=== PATIENT | female | born 1985 | race Caucasian/White ===

== ENCOUNTER 2019-12-15 09:16 | Day surgery (SDC) | payer MEDICAID, SELFPAY ==
[2019-12-14 09:26] VITALS: BMI 45.8
--- NOTE | 2019-12-15 09:34 | P.ANESASSM_ITS ---
Pre-Anesthetic Assessment Pre-Anesthetic Assessment: Height/Weight: Height 1.7 m Weight 132.903 kg Preop Diagnosis: GERD Proposed Procedure: Operation Date: 12/15/19 10:45 Proposed Procedures p EGD 24973 K21.9(Not Applicable) - Los Candelario MD Exam: Pre-Anes Outpt Exam: alert, oriented x 3, clear to auscultation bilaterally and regular rate & rhythm Airway: Submandibular: WNL Cervical ROM: WNL MP: 2 GI: GI: GERD Metabolic: Metabolic: Morbid obesity Musc/skel: Musc/skel: Lower Back Pain Neuropsych: Neuropsych: PETERS Comments: migranes last 3 days ago Anesthetic Plan: ASA status: III Anesthesia: MAC PFSH Anesthesia PFSH: Social History Smoking and tobacco status: never smoked Second hand smoke exposure: No Alcohol intake: never Desire information about alcohol rehabilitation?: No Desire information about substance/drug rehabilitation?: No Adopted: No Caregiver/support person: Yes Lives independently: Yes Household members: spouse and friend(s) Housing: House Marital status: service: No Current occupational status: unemployed Current occupational exposures/hazards: No Pets and animals: No History of recent travel: No Sexually active: Yes Current gender identity: Female Salome/Yazidism: Protestant Special salome needs: No Agree to transfusion: No Financial difficulty paying for basics: Decline to Answer Data Anesthesia Cardiac Studies: No Data to Display
[2019-12-15 10:00] VITALS: BP 121/83; PULSE 83; RESP 18; TEMP 36.9; O2SAT 95
[2019-12-15] MEDS: sodium chloride 0.9% 1,000 ML 30 ML (10:20)
--- NOTE | 2019-12-15 11:25 | PM.HPUD ---
H&P update H&P Update: DATE OF SURGERY/PROCEDURE: 12/15/19 DATE H&P PERFORMED: 12/06/19 H&P UPDATE INFORMATION: H&P completed within last 30 days and No changes to prior documentation PREOP DIAGNOSIS: GERD ASSOCIATED WITH MORBID OBESITY PLANNED PROCEDURE: Operation Date: 12/15/19 10:45 Proposed Procedures p EGD 66561 K21.9(Not Applicable) - Los Candelario MD Full H&P Perinent History: Medical/Surgical History: Medical History (Updated 12/07/19 @ 17:07 by Los Candelario MD) History of PCOS (Acute) Obesity (Acute) Family History: Family History (Updated 12/06/19 @ 10:44 by Saba Morelos RN) Denies family history of Anesthesia complication Bleeding disorder Social History: Social History Smoking and tobacco status: never smoked Second hand smoke exposure: No Alcohol intake: never Desire information about alcohol rehabilitation?: No Desire information about substance/drug rehabilitation?: No Adopted: No Caregiver/support person: Yes Lives independently: Yes Household members: spouse and friend(s) Housing: House Marital status: service: No Current occupational status: unemployed Current occupational exposures/hazards: No Pets and animals: No History of recent travel: No Sexually active: Yes Current gender identity: Female Salome/Faith: Mu-Ism Special salome needs: No Agree to transfusion: No Financial difficulty paying for basics: Decline to Answer
--- NOTE | 2019-12-15 11:50 | ANE.PACU2 ---
 Inpatient post-anesthesia follow up: Airway intact: Yes Vital signs: Temperature 98.4 F Pulse Rate 83 Respiratory Rate 18 Blood Pressure 121/83 Pulse Oximetry 95 Oxygen Delivery Me thod Room Air Oxygen Flow Rate Fraction of Inspir ed Oxygen Hydration adequate: Yes Nausea and vomiting: No Pain level: 1 Mental status: Baseline
[2019-12-15 11:57] VITALS: BP 118/67; PULSE 81; RESP 18; TEMP 36.4; O2SAT 97
[2019-12-15 12:09] VITALS: BP 117/78; PULSE 93; RESP 18; O2SAT 98
[2019-12-16 07:45] LABS: H. Pylori / CLO Test Negative
== END 2019-12-15 12:27 | disposition home or self-care (01) ==
PROVIDERS: Family Provider Family Medicine; Visit Provider Surgery
PROC: 0DJ08ZZ Inspection of Upper Intestinal Tract, Via Natural or Artificial Opening Endoscopic (ICD-10-PCS; CPT 43235; principal; 2019-12-15 10:45)
DX: K21.9 Gastro-esophageal reflux disease without esophagitis (principal); K29.70 Gastritis, unspecified, without bleeding; E66.01 Morbid (severe) obesity due to excess calories; Z68.42 Body mass index [BMI] 45.0-49.9, adult; F41.9 Anxiety disorder, unspecified; E28.2 Polycystic ovarian syndrome
CPT/HCPCS: 12345; 43239; 87077; J2704; J7030

== ENCOUNTER 2019-12-20 11:43 | Emergency (ER) | payer MEDICAID, SELFPAY ==
[2019-12-20 11:54] VITALS: BP 165/104; PULSE 79; RESP 20; TEMP 36.7; O2SAT 96; BMI 45.8
--- NOTE | 2019-12-20 14:11 | ED_ITS ---
HPI - Headache General: Chief Complaint: Headache Stated Complaint: Headache, burry vision Time Seen by Provider: 12/20/19 13:58 History of Present Illness: HPI Narrative: Patient with headache on and off for the last month. Ibuprofen did not seem be working well. Is under increased stress due to taking care of children now. Denies any nausea and vomiting or other related symptoms. MD elicited complaint: headache Onset (ago): week(s) Location: right Severity: mild Quality & Timing: throbbing Exacerbating factors: exertion, movement of head/neck and light Relieving factors: rest Associated symptoms: Deny chest pain, fever(s), nausea, rash or vomiting Review of Systems Const: Denies: fever, chills or body aches Eyes: Denies: change in vision or blurry vision ENMT: Denies: throat pain or nasal congestion Card: Denies: chest pain or shortness of breath on exertion Resp: Denies: shortness of breath, productive cough or non-productive cough GI: Denies: abdominal pain, nausea or vomiting Musc: Denies: extremity pain Skin/Breast: Denies: rash Neuro: Reports: headache Psych: Denies: anxiety or depression Zacarias/Lymph: Denies: easy bruising PFSH ED PFSH: Statuses (acute, chronic, etc) shown below reflect problem list status as previously entered and may not be historically accurate Social History Smoking and tobacco status: never smoked Second hand smoke exposure: No Alcohol intake: never Desire information about alcohol rehabilitation?: No Desire information about substance/drug rehabilitation?: No Adopted: No Caregiver/support person: Yes Lives independently: Yes Household members: spouse and friend(s) Housing: House Marital status: service: No Current occupational status: unemployed Current occupational exposures/hazards: No Pets and animals: No History of recent travel: No Sexually active: Yes Current gender identity: Female Salome/Hinduism: Confucianism Special salome needs: No Agree to transfusion: No Financial difficulty paying for basics: Decline to Answer Physical Exam Const: COMMON NORMALS: no apparent distress, average body habitus and oriented x3 HENMT: COMMON NORMALS: normocephalic HEAD & SCALP: normal to inspection and normocephalic FACE & SINUS: normal facial exam Eye: COMMON NORMALS: conjunctivae normal GENERAL EYE: normal appearance of both eyes CONJUNCTIVA: Yes conjunctivae normal Neck/C-Spine: COMMON NORMALS: no JVD Chest: COMMONS NORMALS: inspection of chest normal Resp: COMMON NORMALS: normal respiratory effort and clear to auscultation bilaterally AUSCULTATION: clear to auscultation bilaterally Cardio: COMMON NORMALS: no JVD, regular rate and regular rhythm RATE: regular rate RHYTHM: regular rhythm GI: COMMON NORMALS: normal to inspection, nondistended, normoactive bowel sounds Extremity: COMMON NORMALS: normal to inspection and full ROM Neuro: COMMON NORMALS: oriented x3 Course Vital Signs: Vital signs: Vital Signs Temperature 98.0 F 12/20/19 11:54 Pulse Rate 79 12/20/19 11:54 Respiratory Rate 20 H 12/20/19 11:54 Blood Pressure 165/104 12/20/19 11:54 Pulse Oximetry 96 12/20/19 11:54 Discharge Plan Discharge Patient Disposition: Home, Self-Care Clinical Impression: Tension headache Condition: Stable Prescriptions: New qxaqixpatq-jyrnobonzadvo-arnd [Esgic] 50-325-40 mg tablet 1 tab PO Q6H PRN (Reason: pain) Qty: 14 RF: 0 No Action Protonix 40 mg tablet,delayed release (DR/EC) 40 mg PO DAILY 30 Days Qty: 30 RF: 1 Discharge Orders: Discharge Order (Routine); Ordered 12/20/19 Ordered By: Kelby Mckinney Referrals: Blaze Augustin, DO [Family Provider] - Discharge Diet: Advance as tolerated Discharge Activity: Resume usual activity Patient Instructions: Headache Activity Restrictions/Additional Instructions: Follow-up with medical provider as directed. Take medications as prescribed. Return to the ER or your medical provider if condition worsens. Please read and understand discharge instructions. If any questions ask please. Establish with a primary provider Coding Level of Care Code ED Safety Belt Installer for Vilma Herrera
[2019-12-20 14:24] VITALS: BP 139/92; PULSE 88; RESP 18; O2SAT 97
== END 2019-12-20 14:25 | disposition home or self-care (01) ==
PROVIDERS: Emergency Provider Nurse Practitioner Family; Family Provider Family Medicine
DX: G44.209 Tension-type headache, unspecified, not intractable (principal)
CPT/HCPCS: 99281

== ENCOUNTER 2020-04-09 12:49 | Emergency (ER) | payer MEDICAID, SELFPAY ==
[2020-04-09 12:53] VITALS: BMI 45.4
[2020-04-09 12:56] VITALS: BP 153/104; PULSE 99; RESP 20; TEMP 36.6; O2SAT 96
--- NOTE | 2020-04-09 13:01 | XRR_ITS ---
PROCEDURE INFORMATION: Exam: XR Lumbosacral Spine, 2 or 3 Views Exam date and time: 04/09/2020 1:47 PM Age: 35 years old Clinical indication: Injury or trauma; Fall; Initial encounter; Blunt trauma (contusions or hematomas) TECHNIQUE: Imaging protocol: XR of the lumbosacral spine, 2 or 3 views. COMPARISON: CT abdomen pelvis w con* [id number] 09/08/2018 2:57 AM FINDINGS: Vertebrae: 4 degree lumbar levoscoliosis. There is a transitional lumbosacral vertebra. Multilevel mild to moderate facet arthropathy. There are multilevel small lower thoracic and lumbar marginal osteophyte formations. Multilevel mild disc space narrowing. Soft tissues: There are benign-appearing soft tissue calcifications. XR/XR lumbar spine 2-3V* [id number] IMPRESSION: There are jpcg-wd-nxdwxhwa degenerative changes as described above. 4 degree lumbar levoscoliosis. No evidence for acute fracture.
--- NOTE | 2020-04-09 13:01 | XRR_ITS ---
PROCEDURE INFORMATION: Exam: XR Thoracic Spine, 3 Views Exam date and time: 04/09/2020 1:02 PM Age: 35 years old Clinical indication: Injury or trauma; Fall; Initial encounter; Blunt trauma (contusions or hematomas) TECHNIQUE: Imaging protocol: XR of the thoracic spine, 3 views. COMPARISON: No relevant prior studies available. FINDINGS: Vertebrae: 7 degree thoracic dextroscoliosis. Multilevel mild disc space narrowing. Soft tissues: Normal. XR/XR thoracic spine 3V* [id number] IMPRESSION: No acute findings. 7 degree thoracic dextroscoliosis.
--- NOTE | 2020-04-09 13:01 | XRR_ITS ---
PROCEDURE INFORMATION: Exam: XR Chest, 2 Views Exam date and time: 04/09/2020 1:02 PM Age: 35 years old Clinical indication: Left-sided chest pain; Additional info: Fall TECHNIQUE: Imaging protocol: XR of the chest Views: 2 views. COMPARISON: CR Chest 1 [place] [id number] 09/08/2018 1:39 AM FINDINGS: Lungs: Unremarkable. No consolidation. Pleural space: Unremarkable. No pleural effusion. No pneumothorax. Heart/Mediastinum: Unremarkable. No cardiomegaly. Bones/joints: Unremarkable. XR/XR chest 2V* [id number] IMPRESSION: No acute findings.
--- NOTE | 2020-04-09 13:03 | W.ED.FALL ---
HPI - Fall General: Chief Complaint: Fall Stated Complaint: rib/leg pain post fall Time Seen by Provider: 04/09/20 12:58 Source: patient Mode of arrival: ambulatory Limitations: no limitations History of Present Illness: HPI Narrative: 35-year-old female who states she fell 3 days ago. She states she has had low back along with chest pain since the event. States pain is sharp in nature and is worse with walking. She denies any other injuries. States her pain is sharp in nature and rates it a MD complaint: fall Associated symptoms-after fall: Denies abdominal pain, chest pain, headache(s) or neck pain Review of Systems Const: Denies: fever(s), chills, body aches or change in appetite Eyes: Denies: blurry vision or eye discomfort ENMT: Denies: throat pain or dental pain Card: Denies: chest pain Resp: Denies: dyspnea GI: Denies: abdominal pain, nausea, vomiting or diarrhea : Denies: dysuria Musc: Reports: back pain; Denies: neck pain Skin/Breast: Denies: rash Neuro: Denies: headache(s) Psych: Denies: depression Zacarias/Lymph: Denies: easy bruising All/Imm: Denies: urticaria PFSH ED PFSH: Medical History History of PCOS Obesity Surgical History History of hysterectomy (~2019) Family History Denies family history of Anesthesia complication Bleeding disorder Social History Smoking and tobacco status: never smoked Second hand smoke exposure: No Alcohol intake: never Desire information about alcohol rehabilitation?: No Desire information about substance/drug rehabilitation?: No Adopted: No Caregiver/support person: Yes Lives independently: Yes Household members: spouse and friend(s) Housing: House Marital status: service: No Current occupational status: unemployed Current occupational exposures/hazards: No Pets and animals: No History of recent travel: No Sexually active: Yes Current gender identity: Female Salome/Buddhist: Buddhism Special salome needs: No Agree to transfusion: No Financial difficulty paying for basics: Decline to Answer Physical Exam Const: COMMON NORMALS: no acute distress, patient oriented x3 and healthy appearing HENMT: COMMON NORMALS: normocephalic and atraumatic HEAD & SCALP: normocephalic and atraumatic Eye: COMMON NORMALS: Equal, round and reactive pupils present and EOMs intact bilaterally PUPIL: Yes Equal, round and reactive pupils present Neck/C-Spine: COMMON NORMALS: full ROM and supple Chest: COMMONS NORMALS: normal inspection of the chest and normal palpation of entire chest wall Resp: COMMON NORMALS: normal respiratory effort, No retractions, No use of accessory muscles and clear to auscultation bilaterally AUSCULTATION: clear to auscultation bilaterally Cardio: COMMON NORMALS: regular rate, regular rhythm and No murmurs present (Cardio) RATE: regular rate RHYTHM: regular rhythm GI: COMMON NORMALS: Normal to inspection, nondistended, normoactive bowel sounds present, Soft to palpation, non-tender and no masses PALPATION: Yes Soft to palpation Back/Pelvis: OTHER: Tenderness along thoracic and lumbar spine Extremity: COMMON NORMALS: normal to inspection and full ROM Neuro: COMMON NORMALS: patient oriented x3, moves all extremities and no focal motor deficits Psych: COMMON NORMALS: mental status grossly normal, Normal thought process present and cooperative THOUGHT PROCESS: Normal thought process present Skin: COMMON NORMALS: no rashes or lesions noted and no wounds GENERAL SKIN EXAM: no rashes or lesions noted Course Vital Signs: Vital signs: Vital Signs Temperature 97.8 F 04/09/20 12:56 Pulse Rate 99 04/09/20 12:56 Respiratory Rate 20 H 04/09/20 12:56 Blood Pressure 153/104 04/09/20 12:56 Pulse Oximetry 96 04/09/20 12:56 MDM - Fall MDM Narrative: Medical decision making narrative: Patient presents here with muscle strain from a fall. Patient's x-rays here are negative her exam is benign. Patient is stable for discharge and is to follow-up with primary care doctor in 3 to 5 days return if worsening. Imaging Data^: CXR: Attestation: I personally reviewed and interpreted this imaging study as follows: My impression: No acute abnormality X-ray lumbar spine: Attestation: I personally reviewed and interpreted this imaging study as follows: My impression: No acute abnormality X-ray thoracic spine: Attestation: I personally reviewed and interpreted this imaging study as follows: My impression: No acute abnormality Discharge Plan Discharge Patient Disposition: Home, Self-Care Clinical Impression: Fall Qualifiers: Encounter type: initial encounter Qualified Code(s): W19.XXXA - Unspecified fall, initial encounter Chest wall contusion Qualifiers: Encounter type: initial encounter Laterality: unspecified laterality Qualified Code(s): S20.219A - Contusion of unspecified front wall of thorax, initial encounter Condition: Stable Prescriptions: New Robaxin-750 750 mg tablet 750 mg PO Q6H Qty: 30 RF: 0 EC-Naprosyn 500 mg tablet,delayed release (DR/EC) 500 mg PO BID PRN (Reason: pain) Qty: 20 RF: 0 No Action Protonix 40 mg tablet,delayed release (DR/EC) 40 mg PO DAILY 30 Days Qty: 30 RF: 1 Esgic 50-325-40 mg tablet 1 tab PO Q6H PRN (Reason: pain) Qty: 14 RF: 0 Discharge Orders: Discharge Order (Routine); Ordered 04/09/20 Ordered By: Randa Howard Referrals: Blaze Augustin, [Family Provider] - Discharge Diet: Advance as tolerated Discharge Activity: Resume usual activity Patient Instructions: Contusion in Adults (ED) Coding Level of Care Code ED Rock Room Worker for Vilma Fwjerry Exam Comprehensive
[2020-04-09] MEDS: HYDROcodone-acetaminophen 7.5-325 mg Tablet 1 TAB PO (13:16)
[2020-04-09 14:03] VITALS: BP 118/91; PULSE 91; RESP 18; O2SAT 91
== END 2020-04-09 14:03 | disposition home or self-care (01) ==
PROVIDERS: Emergency Provider Emergency Medicine; Family Provider Family Medicine
DX: S20.219A Contusion of unspecified front wall of thorax, initial encounter (principal); W19.XXXA Unspecified fall, initial encounter
CPT/HCPCS: 12345; 71046; 72072; 72100; 99281; 99283

== ENCOUNTER 2020-05-04 17:13 | Emergency (ER) | payer MEDICAID, SELFPAY ==
[2020-05-04 17:21] VITALS: BP 138/102; PULSE 83; RESP 14; TEMP 36.7; O2SAT 95; BMI 45.1
[2020-05-04 18:18] LABS: Basophils # 0.1 10^3/uL (0.0-0.1); Basophils % 0.7 %; Eosinophils # 0.3 10^3/uL (0.0-0.8); Eosinophils % 3.1 %; Hematocrit 43.4 % (37.0-47.0); Hemoglobin 14.2 g/dL (11.5-15.3); Lymphocytes # 2.8 10^3/uL (0.8-4.8); Lymphocytes % 25.9 %; Mean Corpuscular HGB Conc 32.7 g/dL (30.0-36.0); Mean Corpuscular Hemoglobin 30.2 pg (28.0-34.0); Mean Corpuscular Volume 92.3 fL (81-99); Mean Platelet Volume 9.2 fL (7.4-10.4); Monocytes # 0.7 10^3/uL (0.2-0.9); Monocytes % 6.4 %; Neutrophils # 6.9 10^3/uL (1.8-7.7); Neutrophils % 63.7 %; Nucleated Red Blood Cells % 0 %; Platelet Count 388 10^3/cmm (130-400); Red Cell Distribution Width 12.9 % (12.1-15.1); White Blood Count 10.8 10^3/uL (4.0-10.0)
[2020-05-04 18:53] LABS: Alanine Aminotransferase 25 U/L (0-33); Albumin Level 4.7 g/dL (3.5-5.2); Alkaline Phosphatase 71 IU/L (35-105); Anion Gap 18.8 (5-19); Aspartate Amino Transferase 19 U/L (0-32); Blood Urea Nitrogen 13 mg/dL (6-20); Calcium 10.3 mg/dL (8.5-10.5); Carbon Dioxide 23 mmol/L (22-29); Chloride 102 mmol/L (98-107); Globulin 2.9 g/dL (1.3-4.6); Glomerular Filtration Rate 95.2 mL/min (90-130); Glucose 92 mg/dL (65-115); Lipase 15 U/L (13-60); Osmolality Calculated 286 mOsm/kg (285-295); Potassium 3.8 mmol/L (3.5-5.1); Sodium 140 mmol/L (136-145); Total Bilirubin 0.2 mg/dL (0.15-1.2); Total Protein 7.6 g/dL (6.6-8.7)
[2020-05-04 18:54] LABS: HCG, Serum Qual Negative (Negative)
[2020-05-04 19:00] LABS: INR 0.86 (0.8-1.2); Partial Thromboplastin Time 26.9 SECONDS (23.9-36.7)
--- NOTE | 2020-05-04 19:08 | CTR_ITS ---
PROCEDURE INFORMATION: Exam: CT Abdomen And Pelvis With Contrast Exam date and time: 05/04/2020 7:24 PM Age: 35 years old Clinical indication: Other: Rectal bleeding; Abdominal pain; Prior surgery; Surgery type: Hyst; Additional info: Abd pain TECHNIQUE: Imaging protocol: Computed tomography of the abdomen and pelvis with intravenous contrast. Radiation optimization: All CT scans at this facility use at least one of these dose optimization techniques: automated exposure control; mA and/or kV adjustment per patient size (includes targeted exams where dose is matched to clinical indication); or iterative reconstruction. Contrast material: OMNI 300; Contrast volume: 95 ml; Contrast route: INTRAVENOUS (IV); COMPARISON: CT abdomen pelvis w con* [id number] 09/08/2018 2:57 AM RADIATION DOSE METRICS: Total DLP (mGy-cm): 2074.12 FINDINGS: There is minimal atelectasis within the lung bases. There is mild scoliosis of the spine. There is no liver mass. There is no intrahepatic biliary dilatation. No gallstones are seen within the gallbladder. The pancreas is unremarkable. The spleen is unremarkable. There is no adrenal mass. There is no hydronephrosis. There are no renal calculi. There is no perinephric stranding. There is no renal mass. The aorta is normal in caliber. The IVC is normal in caliber. There is no retroperitoneal adenopathy. There is no mesenteric adenopathy. The stomach is unremarkable. The small bowel loops in the upper abdomen are nondistended with no bowel wall thickening. The colonic structures within the upper abdomen are normal in caliber with no bowel wall thickening. Within the pelvis: A normal appendix is seen within the right lower quadrant. The bladder is unremarkable. The patient is status post hysterectomy. There are no adnexal masses. There is no free fluid within the pelvis. There is no inguinal adenopathy. There is no pelvic adenopathy. The bowel loops within the pelvis are unremarkable. CT/CT abdomen pelvis w con* [id number] IMPRESSION: 1. No definite cause for patient's rectal bleeding. 2. No bowel wall thickening. 3. No acute inflammatory process is seen within the abdomen or pelvis. Radiation Dose CTDIVOL = (mGy): DLP = 2074.12 (mGy-cm)
--- NOTE | 2020-05-04 19:43 | W.ED.ABDPA2 ---
HPI - Abdominal Pain General: Chief Complaint: Abdominal Pain Stated Complaint: n/v, abd pain, bloody stool Time Seen by Provider: 05/04/20 19:29 History of Present Illness: HPI narrative: 35-year-old female patient who presented left-sided abdominal pain with associated nausea vomiting and diarrhea. Stools have been bloody for about a week. She states that the blood is pouring out of her anus . She denies any fever. She went to her primary care provider who advised that she come to the ED to be evaluated. No history of diverticulitis. MD elicited complaint: abdominal pain Onset (ago): day(s) (3) Location: LUQ and LLQ Quality: stabbing Radiation: none Relieving factors: nothing Associated Symptoms: Reports diarrhea, hematochezia, nausea and vomiting; Denies chills, dysuria and fever(s) Review of Systems General: Reports: 10 or more systems reviewed and unremarkable except in HPI and below Const: Denies: fever(s), chills or body aches Eyes: Denies: change in vision or blurry vision Card: Denies: palpitations, irregular heart rhythm, edema or swelling of feet/ankles Resp: Denies: dyspnea, productive cough or non-productive cough GI: Reports: abdominal pain, nausea, vomiting, diarrhea and hematochezia : Denies: flank pain, difficulty voiding, dysuria, urinary frequency, urinary urgency or urinary hesitancy Musc: Denies: neck pain, back pain or extremity swelling Skin/Breast: Denies: rash, pruritus or erythema Neuro: Denies: headache(s), numbness in extremities or weakness in extremities Endo: Denies: polyuria, polydipsia or tired all the time PFSH ED PFSH: Medical History History of PCOS Obesity Surgical History History of hysterectomy (~2019) Family History Denies family history of Anesthesia complication Bleeding disorder Social History Smoking and tobacco status: never smoked Second hand smoke exposure: No Alcohol intake: never Desire information about alcohol rehabilitation?: No Desire information about substance/drug rehabilitation?: No Adopted: No Caregiver/support person: Yes Lives independently: Yes Household members: spouse and friend(s) Housing: House Marital status: service: No Current occupational status: unemployed Current occupational exposures/hazards: No Pets and animals: No History of recent travel: No Sexually active: Yes Current gender identity: Female Salome/Presybeterian: Adventist Special salome needs: No Agree to transfusion: No Financial difficulty paying for basics: Decline to Answer Physical Exam Const: COMMON NORMALS: no acute distress, average body habitus, patient oriented x3, no limitations, healthy appearing, alert and well nourished HENMT: COMMON NORMALS: normocephalic, atraumatic and moist oral mucous membranes HEAD & SCALP: normocephalic and atraumatic Eye: COMMON NORMALS: Equal, round and reactive pupils present, EOMs intact bilaterally, conjunctivae normal and no scleral icterus CONJUNCTIVA: Yes conjunctivae normal PUPIL: Yes Equal, round and reactive pupils present Neck/C-Spine: COMMON NORMALS: full ROM, supple, no meningeal signs, no JVD and No carotid bruits Chest: COMMONS NORMALS: normal inspection of the chest and normal palpation of entire chest wall Resp: COMMON NORMALS: normal respiratory effort, No retractions, No use of accessory muscles, clear to auscultation bilaterally and percussion normal AUSCULTATION: clear to auscultation bilaterally PERCUSSION: percussion normal Cardio: COMMON NORMALS: no JVD, regular rate, regular rhythm, S1 normal heart sound present, S2 normal heart sound present, No gallops present (Cardio), No clicks present (Cardio), No murmurs present (Cardio), No rub (Cardio) and Peripheral pulses 2+ throughout RATE: regular rate RHYTHM: regular rhythm HEART SOUNDS: S1 normal heart sound present and S2 normal heart sound present PERIPHERAL PULSES: Peripheral pulses 2+ throughout GI: COMMON NORMALS: Soft to palpation INSPECTION: No Laceration(s) present (GI) PALPATION: Yes Soft to palpation, Yes Tenderness to palpation present (GI) Details: LLQ and LUQ and No Rebound tenderness present RECTAL EXAM: normal sphincter tone, heme positive stool, External hemorrhoid(s) present, No Fistula present (GI), no laceration(s) noted, No Excoriation present (GI), no mass(es) noted and no tenderness noted : COMMON NORMALS: Yes no CVA tenderness BLADDER/KIDNEY EXAM: Yes no CVA tenderness Back/Pelvis: COMMON NORMALS: no CVA tenderness Extremity: COMMON NORMALS: normal to inspection, full ROM, capillary refill normal, no calf tenderness and no pedal edema Neuro: COMMON NORMALS: patient oriented x3 SENSORIUM/ORIENTATION: Yes alert MENINGEAL SIGNS: Yes no meningeal signs Skin: COMMON NORMALS: no rashes or lesions noted, no wounds, turgor normal, no jaundice, no petechiae and no mottling GENERAL SKIN EXAM: no rashes or lesions noted and turgor normal Course Reevaluation(s): Reevaluation #1: Discussed her lab and imaging findings with her. Hemoglobin normal, CT scan of her abdomen and pelvis also normal. Hemoccult positive, possibly secondary to bleeding hemorrhoids although there is no active bleeding noted. Discussed that since she has been bleeding for about a week and her hemoglobin is normal I do not think there is any indication for admission. We will discharge her home and schedule an outpatient colonoscopy. She voiced understanding and is in agreement with the plan peer Time: 21:04 Vital Signs: Vital signs: Vital Signs Temperature 98.0 F 05/04/20 17:21 Pulse Rate 86 05/04/20 19:50 Respiratory Rate 16 05/04/20 19:50 Blood Pressure 128/84 05/04/20 19:50 Pulse Oximetry 96 05/04/20 19:50 MDM - Abdominal Pain MDM Narrative: Medical decision making narrative: Patient who describes copious rectal bleeding. She has associated abdominal pain nausea and vomiting. With diarrhea. Evaluation here shows essentially normal laboratory findings except a mildly elevated white cell count, normal hemoglobin which would be unusual if she is having as much bleeding as she is describing. CT scan of her abdomen and pelvis was negative for diverticulitis or other acute findings. She is discharged home to follow-up for an outpatient colonoscopy. No indication for further work-up in the emergency department. Pain resolved following morphine. She is discharged home with a prescription for tramadol. Medical Records: Attestation: I reviewed the patient's medical records. Lab Data: Attestation: I reviewed the patient's lab results. Labs: Lab Results 05/04/20 05/04/20 05/04/20 Range/Units 18:00 18:00 18:00 WBC 10.8 H (4.0-10.0) 10^3/ uL RBC 4.70 (4.1-5.3) 10^6/u L Hgb 14.2 (11.5-15.3) g/dL Hct 43.4 (37.0-47.0) % MCV 92.3 (81-99) fL MCH 30.2 (28.0-34.0) pg MCHC 32.7 (30.0-36.0) g/dL RDW 12.9 (12.1-15.1) % Plt Count 388 (130-400) 10^3/c mm MPV 9.2 (7.4-10.4) fL Neut % (Auto) 63.7 % Lymph % (Auto) 25.9 % Dawson % (Auto) 6.4 % Eos % (Auto) 3.1 % Baso % (Auto) 0.7 % Neut # (Auto) 6.9 (1.8-7.7) 10^3/u L Lymph # (Auto) 2.8 (0.8-4.8) 10^3/u L Dawson # (Auto) 0.7 (0.2-0.9) 10^3/u L Eos # (Auto) 0.3 (0.0-0.8) 10^3/u L Baso # (Auto) 0.1 (0.0-0.1) 10^3/u L Nucleated RBC % (a uto) 0 % Nucleated RBCs # 0.0 /100WBC PT 12.00 (10.5-13.3) SECO NDS INR 0.86 (0.8-1.2) APTT 26.9 (23.9-36.7) SECO NDS Sodium 140 (136-145) mmol/L Potassium 3.8 (3.5-5.1) mmol/L Chloride 102 (98-107) mmol/L Carbon Dioxide 23 (22-29) mmol/L Anion Gap 18.8 (5-19) BUN 13 (6-20) mg/dL Creatinine 0.7 (0.5-0.9) mg/dL GFR Calculation 95.2 (90-130) mL/min Glucose 92 (65-115) mg/dL Calculated Osmolal ity 286 (285-295) mOsm/k g Calcium 10.3 (8.5-10.5) mg/dL Total Bilirubin 0.2 (0.15-1.2) mg/dL AST 19 (0-32) U/L ALT 25 (0-33) U/L Alkaline Phosphata se 71 (35-105) IU/L Total Protein 7.6 (6.6-8.7) g/dL Albumin 4.7 (3.5-5.2) g/dL Globulin 2.9 (1.3-4.6) g/dL Lipase 15 (13-60) U/L HCG, Qual (Negative) Urine Color (Yellow) Urine Appearance (CLEAR) Urine pH (5-7) Ur Specific Gravit y (1.005-1.030) Urine Protein (Negative) Urine Glucose (UA) (Normal) Urine Ketones (Negative) Urine Blood (Negative) Urine Nitrate (Negative) Urine Bilirubin (NEGATIVE) Urine Urobilinogen (Negative) mg/dL Ur Leukocyte Danuta ase (Negative) Urine RBC (0-2) /hpf Urine WBC (0-5) /hpf Ur Squamous Epith Cells (0-5) Calcium Oxalate Cr ystal /hpf Amorphous Sediment Urine Bacteria (NONE) 05/04/20 05/04/20 Range/Units 18:00 20:40 WBC (4.0-10.0) 10^3/ uL RBC (4.1-5.3) 10^6/u L Hgb (11.5-15.3) g/dL Hct (37.0-47.0) % MCV (81-99) fL MCH (28.0-34.0) pg MCHC (30.0-36.0) g/dL RDW (12.1-15.1) % Plt Count (130-400) 10^3/c mm MPV (7.4-10.4) fL Neut % (Auto) % Lymph % (Auto) % Dawson % (Auto) % Eos % (Auto) % Baso % (Auto) % Neut # (Auto) (1.8-7.7) 10^3/u L Lymph # (Auto) (0.8-4.8) 10^3/u L Dawson # (Auto) (0.2-0.9) 10^3/u L Eos # (Auto) (0.0-0.8) 10^3/u L Baso # (Auto) (0.0-0.1) 10^3/u L Nucleated RBC % (a uto) % Nucleated RBCs # /100WBC PT (10.5-13.3) SECO NDS INR (0.8-1.2) APTT (23.9-36.7) SECO NDS Sodium (136-145) mmol/L Potassium (3.5-5.1) mmol/L Chloride (98-107) mmol/L Carbon Dioxide (22-29) mmol/L Anion Gap (5-19) BUN (6-20) mg/dL Creatinine (0.5-0.9) mg/dL GFR Calculation (90-130) mL/min Glucose (65-115) mg/dL Calculated Osmolal ity (285-295) mOsm/k g Calcium (8.5-10.5) mg/dL Total Bilirubin (0.15-1.2) mg/dL AST (0-32) U/L ALT (0-33) U/L Alkaline Phosphata se (35-105) IU/L Total Protein (6.6-8.7) g/dL Albumin (3.5-5.2) g/dL Globulin (1.3-4.6) g/dL Lipase (13-60) U/L HCG, Qual Negative (Negative) Urine Color Yellow (Yellow) Urine Appearance Hazy A (CLEAR) Urine pH 5 (5-7) Ur Specific Gravit y 1.020 (1.005-1.030) Urine Protein Neg (Negative) Urine Glucose (UA) Norm (Normal) Urine Ketones 2+ H (Negative) Urine Blood Neg (Negative) Urine Nitrate Positive H (Negative) Urine Bilirubin Neg (NEGATIVE) Urine Urobilinogen Norm (Negative) mg/dL Ur Leukocyte Danuta ase Negative (Negative) Urine RBC 5-10 H (0-2) /hpf Urine WBC 15-25 H (0-5) /hpf Ur Squamous Epith Cells 5-10 H (0-5) Calcium Oxalate Cr ystal 10-15 H /hpf Amorphous Sediment Not Reportable Urine Bacteria 3+ H (NONE) Imaging Data ^: CT Abd/Pel: Radiologist's impression: [facility] [address] [place] [address] CT Scan Report Signed Patient: Rajni Mallory #: [id number] : 1985Acct#:[id number] Age/Sex: 35 / FADM Date: 05/04/20 Loc: ERRoom/Bed: Attending Dr: Ordering Provider/Ordering MD: Randa Howard MD Date of Service: 05/04/20 Procedure(s): CT abdomen pelvis w con* [id number] Accession Number(s): [id number] Report Number: [id number] PROCEDURE INFORMATION: Exam: CT Abdomen And Pelvis With Contrast Exam date and time: 05/04/2020 7:24 PM Age: 35 years old Clinical indication: Other: Rectal bleeding; Abdominal pain; Prior surgery; Surgery type: Hyst; Additional info: Abd pain TECHNIQUE: Imaging protocol: Computed tomography of the abdomen and pelvis with intravenous contrast. Radiation optimization: All CT scans at this facility use at least one of these dose optimization techniques: automated exposure control; mA and/or kV adjustment per patient size (includes targeted exams where dose is matched to clinical indication); or iterative reconstruction. Contrast material: OMNI 300; Contrast volume: 95 ml; Contrast route: INTRAVENOUS (IV); COMPARISON: CT abdomen pelvis w con* [id number] 09/08/2018 2:57 AM RADIATION DOSE METRICS: Total DLP (mGy-cm): 2074.12 FINDINGS: There is minimal atelectasis within the lung bases. There is mild scoliosis of the spine. There is no liver mass. There is no intrahepatic biliary dilatation. No gallstones are seen within the gallbladder. The pancreas is unremarkable. The spleen is unremarkable. There is no adrenal mass. There is no hydronephrosis. There are no renal calculi. There is no perinephric stranding. There is no renal mass. The aorta is normal in caliber. The IVC is normal in caliber. There is no retroperitoneal adenopathy. There is no mesenteric adenopathy. The stomach is unremarkable. The small bowel loops in the upper abdomen are nondistended with no bowel wall thickening. The colonic structures within the upper abdomen are normal in caliber with no bowel wall thickening. Within the pelvis: A normal appendix is seen within the right lower quadrant. The bladder is unremarkable. The patient is status post hysterectomy. There are no adnexal masses. There is no free fluid within the pelvis. There is no inguinal adenopathy. There is no pelvic adenopathy. The bowel loops within the pelvis are unremarkable. CT/CT abdomen pelvis w con* [id number] IMPRESSION: 1. No definite cause for patient's rectal bleeding. 2. No bowel wall thickening. 3. No acute inflammatory process is seen within the abdomen or pelvis. Radiation Dose CTDIVOL = (mGy): DLP = 2074.12 (mGy-cm) Dictated By:Ron Muhammad MD Signed By:Ron Muhammadigned Date/Time:05/04/202013 DD/ 11 Discharge Plan Discharge Patient Disposition: Home, Self-Care Clinical Impression: Rectal bleeding Condition: Stable Prescriptions: New tramadol 50 mg tablet 50 mg PO Q8H PRN (Reason: pain) Qty: 12 RF: 0 No Action No Known Home Medications RF: 0 Discharge Orders: Discharge Order (Routine); Ordered 05/04/20 Ordered By: Brenton Weathers Patient Instructions: Rectal Bleeding (ED) Activity Restrictions/Additional Instructions: Return for any new or worsening symptoms. Take the pain medicine as needed for pain. You will be contacted by case management to schedule an outpatient colonoscopy. Coding Level of Care Code ED Second Steward for Chg Fwd Exam Comprehensive
[2020-05-04 19:50] VITALS: BP 128/84; PULSE 86; RESP 16; O2SAT 96
--- NOTE | 2020-05-04 19:58 | PC.NURSE ---
Patient to CT in stable condition.
[2020-05-04] MEDS: iohexol 300 mg/mL 100 mL Btl IV (20:01)
[2020-05-04] MEDS: ondansetron 2 mg/ML SDV 2 mL 4 MG IVP (20:30)
[2020-05-04] MEDS: morphine 4 mg/mL SDV 1 mL IVP (20:30)
[2020-05-04 21:27] LABS: Urine Appearance Hazy (CLEAR); Urine Color Yellow (Yellow); pH Urine 5 (5-7)
[2020-05-04 21:28] LABS: Add Urine Microscopic? YES; Bilirubin Urine Neg (NEGATIVE); Blood Urine Neg (Negative); Glucose Urine UA Norm (Normal); Ketones Urine 2+ (Negative); Leukocyte Esterase Urine Negative (Negative); Nitrate Urine Positive (Negative); Protein Urine Neg (Negative); Urobilinogen Urine Norm (Negative)
[2020-05-04 21:47] LABS: Add Urine Culture? Yes; Bacteria Urine 3+; WBC Urine 15-25 /hpf (0-5)
--- NOTE | 2020-05-05 10:15 | DCPLANNER ---
manager creative had message to schedule a follow up appointment for patient with general surgery. manager creative called [facility], spoke with Vero, gave clinic patients information. manager creative was told that patients information would be printed and reviewed. Clinic will call patient with appointment information.
--- NOTE | 2020-05-09 09:26 | DCPLANNER ---
Patient has a follow up appointment scheduled for Friday, May 19, [address] at 11:[address] Terrell. Clinic will call patient with appointment information.
--- NOTE | 2020-05-23 12:24 | DCPLANNER ---
Patient did attend follow up appointment scheduled for 05.19.20 with [facility].
== END 2020-05-04 22:05 | disposition home or self-care (01) ==
PROVIDERS: Physician Assistant; Emergency Provider Family Medicine
DX: K62.5 Hemorrhage of anus and rectum (principal)
CPT/HCPCS: 12345; 36415; 74177; 80053; 81001; 83690; 84703; 85025; 85610; 85730; 87077; 87086; 87186; 96374; 96375; 99282; 99283; J2270; J2405; Q9967

== ENCOUNTER → 2020-06-05 09:51 | Outpatient (BNVA) | payer MEDICAID, SELFPAY | PROVIDERS: Visit Provider Psychiatry & Neurology Psychiatry | DX: F41.1 Generalized anxiety disorder (principal); F81.9 Developmental disorder of scholastic skills, unspecified ==

== ENCOUNTER → 2020-06-27 13:37 | Outpatient (BNVA) | payer MEDICAID, SELFPAY | PROVIDERS: Visit Provider Nurse Practitioner | DX: S89.91XA Unspecified injury of right lower leg, initial encounter (principal) | CPT/HCPCS: 73560 ==

== ENCOUNTER 2020-06-30 14:42 | Emergency (ER) | payer MEDICAID, SELFPAY ==
[2020-06-30 14:48] VITALS: BP 153/102; PULSE 80; RESP 20; TEMP 37; O2SAT 97; BMI 46.2
--- NOTE | 2020-06-30 14:53 | XR_ITS ---
WS: [id number] EXAM: RIGHT KNEE: 3 VIEWS DATE OF EXAMINATION: 06/30/2020, 1519 hours COMPARISON: Right knee exam from 06/27/2020 HISTORY: Patient is 35 years old with knee pain status post fall. FINDINGS: Bone density is normal in appearance. No fracture or dislocation is seen. No joint effusion is seen. There appears to be some edema in the extra-articular soft tissues suggesting possibly contusion inju ry. XR/XR knee RT 3V* [id number] IMPRESSION: No acute bony abnormality. Soft tissue edema in the extra articular soft tissues suggesting possible contu edel injury.
--- NOTE | 2020-06-30 14:54 | W.ED.EXTPRO ---
HPI - Extremity Problem General: Chief complaint: Extremity Injury, Lower Stated complaint: RIGHT KNEE PAIN Time Seen by Provider: 06/30/20 14:50 History of Present Illness: HPI Narrative: Patient states she fell 2 weeks ago her knee is hurt since then. She did have a slight bruise and now is turning red and pain is spreading around her knee and is hard to ambulate. MD Complaint: joint pain Onset (ago): day(s) Pain Consistency: constant Location: right and knee Severity scale (1-10): 7 Quality: aching Radiation: none Relieving factors: immobilization Exacerbating factors: range of motion and weight bearing Associated symptoms: Reports no associated symptoms; Deny chest pain, fever(s) or rash Review of Systems Const: Denies: fever(s), chills or body aches Eyes: Denies: change in vision or blurry vision ENMT: Denies: throat pain or nasal congestion Card: Denies: chest pain or dyspnea on exertion Resp: Denies: dyspnea, productive cough or non-productive cough GI: Denies: abdominal pain, nausea or vomiting Musc: Reports: joint pain, joint redness, joint warmth and joint stiffness; Denies: extremity pain Skin/Breast: Denies: rash Neuro: Denies: headache(s) Psych: Denies: anxiety or depression Azcarias/Lymph: Denies: easy bruising PFSH ED PFSH: Medical History Generalized anxiety disorder History of PCOS Intellectual delay Obesity Surgical History H/O esophagogastroduodenoscopy History of hysterectomy (~2019) Family History Denies family history of Anesthesia complication Bleeding disorder Social History Smoking and tobacco status: never smoked Second hand smoke exposure: No Alcohol intake: never Desire information about alcohol rehabilitation?: No Desire information about substance/drug rehabilitation?: No Adopted: No Caregiver/support person: Yes Lives independently: Yes Household members: spouse and friend(s) Housing: House Marital status: service: No Current occupational status: unemployed Current occupational exposures/hazards: No Pets and animals: No History of recent travel: No Sexually active: Yes Current gender identity: Female Salome/Denominational: Samaritan Special salome needs: No Agree to transfusion: No Financial difficulty paying for basics: Decline to Answer Physical Exam Const: COMMON NORMALS: no acute distress, average body habitus and patient oriented x3 HENMT: COMMON NORMALS: normocephalic HEAD & SCALP: normal to inspection and normocephalic FACE & SINUS: normal facial exam Eye: COMMON NORMALS: conjunctivae normal GENERAL EYE: appearance normal, both eyes and all related structures CONJUNCTIVA: Yes conjunctivae normal Neck/C-Spine: COMMON NORMALS: no JVD Chest: COMMONS NORMALS: normal inspection of the chest Resp: COMMON NORMALS: normal respiratory effort and clear to auscultation bilaterally AUSCULTATION: clear to auscultation bilaterally Cardio: COMMON NORMALS: no JVD, regular rate and regular rhythm RATE: regular rate RHYTHM: regular rhythm GI: COMMON NORMALS: Normal to inspection, nondistended, normoactive bowel sounds present Extremity: COMMON NORMALS: normal to inspection and full ROM RIGHT LOWER EXTREMITY: Yes knee joint (Patient has diffuse mild redness around the knee joint is tender to touch over the patella does have limited range of motion due to pain mild swelling) Neuro: COMMON NORMALS: patient oriented x3 Course Vital Signs: Vital signs: Vital Signs Temperature 98.6 F 06/30/20 14:48 Pulse Rate 80 06/30/20 14:48 Respiratory Rate 20 H 06/30/20 14:48 Blood Pressure 153/102 06/30/20 14:48 Pulse Oximetry 97 06/30/20 14:48 Discharge Plan Discharge Prescriptions: No Action tramadol 50 mg tablet 50 mg PO Q8H PRN (Reason: pain) Qty: 12 RF: 0 Coding Level of Care Code ED Printing Specialist for Vilma Herrera
[2020-06-30 15:01] VITALS: BP 130/83; PULSE 75; RESP 18; O2SAT 97
[2020-06-30] MEDS: HYDROcodone-acetaminophen 7.5-325 mg Tablet 1 TAB PO (15:01)
[2020-06-30] MEDS: cefTRIAXone 1,000 mg SDV 1000 MG IM (15:57)
[2020-06-30 16:40] LABS: Basophils # 0.1 10^3/uL (0.0-0.1); Basophils % 0.6 %; Eosinophils # 0.4 10^3/uL (0.0-0.8); Eosinophils % 3.6 %; Hematocrit 41.6 % (37.0-47.0); Hemoglobin 13.1 g/dL (11.5-15.3); Lymphocytes # 2.9 10^3/uL (0.8-4.8); Lymphocytes % 26.1 %; Mean Corpuscular HGB Conc 31.5 g/dL (30.0-36.0); Mean Corpuscular Hemoglobin 30.3 pg (28.0-34.0); Mean Corpuscular Volume 96.1 fL (81-99); Mean Platelet Volume 9.8 fL (7.4-10.4); Monocytes # 0.8 10^3/uL (0.2-0.9); Monocytes % 7.4 %; Neutrophils # 6.79 10^3/uL (1.8-7.7); Neutrophils % 61.9 %; Nucleated Red Blood Cells % 0 %; Platelet Count 335 10^3/cmm (130-400); Red Blood Count 4.33 10^6/uL (4.1-5.3); Red Cell Distribution Width 13.1 % (12.1-15.1)
[2020-06-30 17:03] VITALS: BP 115/89; PULSE 70; RESP 16; O2SAT 95
== END 2020-06-30 17:06 | disposition home or self-care (01) ==
PROVIDERS: Emergency Provider Nurse Practitioner Family
DX: M25.561 Pain in right knee (principal)
CPT/HCPCS: 12345; 36415; 73562; 85025; 96372; 99281; 99283; J0696

== ENCOUNTER → 2020-08-22 16:28 | Outpatient (BNVA) | payer MEDICAID, SELFPAY | PROVIDERS: Visit Provider Nurse Practitioner Family | DX: Z11.59 Encounter for screening for other viral diseases (principal) | CPT/HCPCS: 87635 ==

== ENCOUNTER 2020-09-17 17:23 | Emergency (ER) | payer MEDICAID, SELFPAY ==
[2020-09-17] VITALS (7 sets, daily range): BP systolic 116–141; BP diastolic 81–96; PULSE 93–97; RESP 14–18; TEMP 36.5; O2SAT 95–99; BMI 44.6
[2020-09-17 18:38] LABS: Basophils # 0.1 10^3/uL (0.0-0.1); Basophils % 0.6 %; Eosinophils # 0.4 10^3/uL (0.0-0.8); Eosinophils % 2.8 %; Hemoglobin 13.7 g/dL (11.5-15.3); Lymphocytes # 3.2 10^3/uL (0.8-4.8); Lymphocytes % 22.7 %; Mean Corpuscular HGB Conc 33.4 g/dL (30.0-36.0); Mean Corpuscular Hemoglobin 30.8 pg (28.0-34.0); Mean Corpuscular Volume 92.1 fL (81-99); Monocytes % 7.2 %; Neutrophils # 9.37 10^3/uL (1.8-7.7); Neutrophils % 66.3 %; Nucleated Red Blood Cells % 0 %; Platelet Count 374 10^3/cmm (130-400); Red Blood Count 4.45 10^6/uL (4.1-5.3); Red Cell Distribution Width 12.7 % (12.1-15.1); White Blood Count 14.1 10^3/uL (4.0-10.0)
[2020-09-17 18:43] LABS: HCG Qualitative Urine. Negative (Negative)
[2020-09-17 18:46] LABS: Add Urine Microscopic? YES; Bilirubin Urine Neg (Negative); Blood Urine Neg (Negative); Glucose Urine UA Norm (Normal); Ketones Urine Negative (Negative); Leukocyte Esterase Urine Negative (Negative); Nitrate Urine Negative (Negative); Protein Urine Neg (Negative); Specific Gravity, Urine 1.015 (1.005-1.030); Urine Appearance SL Hazy (CLEAR); Urine Color Yellow (Yellow); Urobilinogen Urine 1 mg/dL (Negative); pH Urine 6.5 (5-7)
[2020-09-17 18:48] LABS: Bacteria Urine 1+ /hpf; Mucus Urine 1+ /hpf
[2020-09-17 18:49] LABS: Add Urine Culture? No
--- NOTE | 2020-09-17 18:57 | ED_ITS ---
HPI - General Adult General: Chief complaint: General Medical Stated complaint: multiple complaints Time Seen by Provider: 09/17/20 17:58 History of Present Illness: HPI narrative: 35-year-old female complaining of lower abdominal and rectal pain for the past couple of days. She says that she has had foamy diarrhea. No fever. No cough or congestion. No vomiting. She describes [id number] type pain in her rectum, and generalized lower abdominal pain. She relates that she has no vaginal discharge or bleeding. She has had a hysterectomy in the past. Onset (ago): day(s) Location: abdomen and buttocks Radiation: non-radiation Severity: moderate Quality: burning, aching and other Pain Consistency: constant Relieving factors: none Exacerbating factors: none Associated symptoms: Deny chest pain, cough, dyspnea, fevers/chills, headache(s), nausea, short of breath or vomiting Review of Systems Const: Denies: fever(s) or chills Eyes: Denies: change in vision ENMT: Denies: odynophagia, swelling of lips/tongue or sinus pain Card: Denies: chest pain Resp: Denies: dyspnea, productive cough, non-productive cough or wheezing GI: Denies: nausea or vomiting : Denies: dysuria or hematuria Musc: Reports: back pain; Denies: neck pain or joint warmth Skin/Breast: Denies: erythema Neuro: Denies: headache(s), dizziness or vertigo Psych: Denies: anxiety [facility] ED PFSH: Medical History (Updated 09/17/20 @ 21:51 by Anthony Potts DO) Generalized anxiety disorder History of PCOS Intellectual delay Obesity Surgical History H/O esophagogastroduodenoscopy History of hysterectomy (~2019) Family History Denies family history of Anesthesia complication Bleeding disorder Social History Smoking and tobacco status: never smoked Second hand smoke exposure: No Alcohol intake: never Desire information about alcohol rehabilitation?: No Desire information about substance/drug rehabilitation?: No Adopted: No Caregiver/support person: Yes Lives independently: Yes Household members: spouse and friend(s) Housing: House Marital status: service: No Current occupational status: unemployed Current occupational exposures/hazards: No Pets and animals: No History of recent travel: No Sexually active: Yes Current gender identity: Female Salome/Mormon: Baptism Special salome needs: No Agree to transfusion: No Financial difficulty paying for basics: Decline to Answer Physical Exam Const: GENERAL APPEARANCE: well developed ORIENTATION/CONSCIOUSNESS: Yes oriented to person, Yes oriented to place and Yes oriented to time HENMT: COMMON NORMALS: normocephalic, external ears normal and Normal external nose present HEAD & SCALP: normocephalic FACE & SINUS: normal facial exam NOSE: Normal external nose present and No nasal discharge present EXTERNAL EAR: Yes external ears normal Eye: COMMON NORMALS: Equal, round and reactive pupils present, EOMs intact bilaterally and conjunctivae normal EYELID: eyelids normal CONJUNCTIVA: Yes conjunctivae normal PUPIL: Yes Equal, round and reactive pupils present Neck/C-Spine: GENERAL: No tracheal deviation Chest: COMMONS NORMALS: normal inspection of the chest CHEST: No tenderness Resp: COMMON NORMALS: clear to auscultation bilaterally EFFORT & INSPECTION: No tachypneic, No respiratory distress, No retractions, No uses accessory muscles and No tracheal deviation AUSCULTATION: clear to auscultation bilaterally, no rhonchi, no wheezes and lung sounds not diminished Cardio: COMMON NORMALS: regular rate and regular rhythm RATE: regular rate RHYTHM: regular rhythm HEART SOUNDS: no murmurs PERIPHERAL PULSES: radial pulses present GI: INSPECTION: No abdominal distension AUSCULTATION: No Hyperactive bowel sounds present and No Hypoactive bowel sounds present PALPATION: No Guarding due to palpation present (GI) and No Rigid due to palpation PERCUSSION: no dullness to percussion and no tympanic to percussion : BLADDER/KIDNEY EXAM: Yes CVA tenderness Back/Pelvis: GENERAL BACK: Yes CVA tenderness CVA tenderness: right Neuro: SENSORIUM/ORIENTATION: Yes oriented to person, Yes oriented to place and Yes oriented to time Psych: COMMON NORMALS: mental status grossly normal Skin: COMMON NORMALS: no rashes or lesions noted GENERAL SKIN EXAM: no rashes or lesions noted Course Vital Signs: Vital signs: Vital Signs Temperature 97.7 F 09/17/20 17:40 Pulse Rate 94 09/17/20 21:30 Respiratory Rate 18 09/17/20 21:30 Blood Pressure 127/96 09/17/20 21:30 Pulse Oximetry 97 09/17/20 21:30 MDM - General Adult MDM Narrative: Medical decision making narrative: White blood cell count was elevated, so CT was ordered. It is negative. Urinalysis does not reveal urinary tract infection. Other labs are benign. Rectal exam is tender, but does not reveal any mass or hemorrhoid. There may be a small fissure. This will be treated. Lab Data: Labs: Lab Results 09/17/20 09/17/20 09/17/20 Range/Units 18:30 18:30 18:30 WBC 14.1 H (4.0-10.0) 10^3/ uL RBC 4.45 (4.1-5.3) 10^6/u L Hgb 13.7 (11.5-15.3) g/dL Hct 41.0 (37.0-47.0) % MCV 92.1 (81-99) fL MCH 30.8 (28.0-34.0) pg MCHC 33.4 (30.0-36.0) g/dL RDW 12.7 (12.1-15.1) % Plt Count 374 (130-400) 10^3/c mm MPV 9.0 (7.4-10.4) fL Neut % (Auto) 66.3 % Lymph % (Auto) 22.7 % Giles % (Auto) 7.2 % Eos % (Auto) 2.8 % Baso % (Auto) 0.6 % Neut # (Auto) 9.37 H (1.8-7.7) 10^3/u L Lymph # (Auto) 3.2 (0.8-4.8) 10^3/u L Giles # (Auto) 1.0 H (0.2-0.9) 10^3/u L Eos # (Auto) 0.4 (0.0-0.8) 10^3/u L Baso # (Auto) 0.1 (0.0-0.1) 10^3/u L Nucleated RBC % (a uto) 0 % Nucleated RBCs # 0.0 /100WBC Sodium 138 (136-145) mmol/L Potassium 4.0 (3.5-5.1) mmol/L Chloride 102 (98-107) mmol/L Carbon Dioxide 28 (22-29) mmol/L Anion Gap 12.0 (5-19) BUN 11 (6-20) mg/dL Creatinine 0.7 (0.5-0.9) mg/dL GFR Calculation 95.2 (90-130) mL/min Glucose 112 (65-115) mg/dL Calculated Osmolal ity 286 (285-295) mOsm/k g Calcium 9.2 (8.5-10.5) mg/dL Total Bilirubin 0.2 (0.15-1.2) mg/dL AST 22 (0-32) U/L ALT 24 (0-33) U/L Alkaline Phosphata se 85 (35-105) IU/L Total Protein 7.5 (6.6-8.7) g/dL Albumin 4.2 (3.5-5.2) g/dL Globulin 3.3 (1.3-4.6) g/dL Lipase 14 (13-60) U/L HCG, Qual Negative (Negative) Urine Color (Yellow) Urine Appearance (CLEAR) Urine pH (5-7) Ur Specific Gravit y (1.005-1.030) Urine Protein (Negative) Urine Glucose (UA) (Normal) Urine Ketones (Negative) Urine Blood (Negative) Urine Nitrate (Negative) Urine Bilirubin (Negative) Urine Urobilinogen (Negative) mg/dL Ur Leukocyte Danuta ase (Negative) Urine RBC (0-2) /hpf Urine WBC (0-5) /hpf Ur Squamous Epith Cells (0-5) /hpf Amorphous Sediment Urine Bacteria (NONE) /hpf Urine Mucus /hpf 09/17/20 Range/Units 18:30 WBC (4.0-10.0) 10^3/ uL RBC (4.1-5.3) 10^6/u L Hgb (11.5-15.3) g/dL Hct (37.0-47.0) % MCV (81-99) fL MCH (28.0-34.0) pg MCHC (30.0-36.0) g/dL RDW (12.1-15.1) % Plt Count (130-400) 10^3/c mm MPV (7.4-10.4) fL Neut % (Auto) % Lymph % (Auto) % Giles % (Auto) % Eos % (Auto) % Baso % (Auto) % Neut # (Auto) (1.8-7.7) 10^3/u L Lymph # (Auto) (0.8-4.8) 10^3/u L Giles # (Auto) (0.2-0.9) 10^3/u L Eos # (Auto) (0.0-0.8) 10^3/u L Baso # (Auto) (0.0-0.1) 10^3/u L Nucleated RBC % (a uto) % Nucleated RBCs # /100WBC Sodium (136-145) mmol/L Potassium (3.5-5.1) mmol/L Chloride (98-107) mmol/L Carbon Dioxide (22-29) mmol/L Anion Gap (5-19) BUN (6-20) mg/dL Creatinine (0.5-0.9) mg/dL GFR Calculation (90-130) mL/min Glucose (65-115) mg/dL Calculated Osmolal ity (285-295) mOsm/k g Calcium (8.5-10.5) mg/dL Total Bilirubin (0.15-1.2) mg/dL AST (0-32) U/L ALT (0-33) U/L Alkaline Phosphata se (35-105) IU/L Total Protein (6.6-8.7) g/dL Albumin (3.5-5.2) g/dL Globulin (1.3-4.6) g/dL Lipase (13-60) U/L HCG, Qual (Negative) Urine Color Yellow (Yellow) Urine Appearance Sl hazy (CLEAR) Urine pH 6.5 (5-7) Ur Specific Gravit y 1.015 (1.005-1.030) Urine Protein Neg (Negative) Urine Glucose (UA) Norm (Normal) Urine Ketones Negative (Negative) Urine Blood Neg (Negative) Urine Nitrate Negative (Negative) Urine Bilirubin Neg (Negative) Urine Urobilinogen 1 H (Negative) mg/dL Ur Leukocyte Danuta ase Negative (Negative) Urine RBC None (0-2) /hpf Urine WBC None (0-5) /hpf Ur Squamous Epith Cells 5-10 H (0-5) /hpf Amorphous Sediment Not Reportable Urine Bacteria 1+ H (NONE) /hpf Urine Mucus 1+ /hpf Discharge Plan Discharge Patient Disposition: Home Clinical Impression: Anal or rectal pain Condition: Stable Prescriptions: New Anusol-HC 25 mg suppository 25 mg MS BID Qty: 12 RF: 0 No Action Tylenol Extra Strength 500 mg Tablet 1,000 mg PO PRN RF: 0 fluoxetine 20 mg capsule 20 mg PO DAILY RF: 0 naproxen 500 mg tablet 500 mg PO BID PRN (Reason: Pain) RF: 0 hydrocodone-acetaminophen 5-325 mg tablet 1 tab PO Q6H PRN (Reason: pain) Qty: 14 RF: 0 Discharge Orders: Discharge Order (Routine); Ordered 09/17/20 Ordered By: Anthony Potts Discharge Diet: Advance as tolerated Discharge Activity: Increase activity as tolerated Patient Instructions: Anal Fissure (ED), Abdominal Pain (ED) Activity Restrictions/Additional Instructions: Medications as directed, return for worsening pain despite treatment, fever greater than 100, vomiting liquids or medications, significant blood in the s tool, other concerning symptoms Discharge Date/Time: 09/17/20 22:09 Coding Level of Care Code ED Contact Acid Plant Operator for Chg Fwd Exam Comprehensive
[2020-09-17 19:00] LABS: Alanine Aminotransferase 24 U/L (0-33); Albumin Level 4.2 g/dL (3.5-5.2); Alkaline Phosphatase 85 IU/L (35-105); Aspartate Amino Transferase 22 U/L (0-32); Blood Urea Nitrogen 11 mg/dL (6-20); Calcium 9.2 mg/dL (8.5-10.5); Carbon Dioxide 28 mmol/L (22-29); Chloride 102 mmol/L (98-107); Globulin 3.3 g/dL (1.3-4.6); Glomerular Filtration Rate 95.2 mL/min (90-130); Glucose 112 mg/dL (65-115); Lipase 14 U/L (13-60); Osmolality Calculated 286 mOsm/kg (285-295); Sodium 138 mmol/L (136-145); Total Bilirubin 0.2 mg/dL (0.15-1.2); Total Protein 7.5 g/dL (6.6-8.7)
--- NOTE | 2020-09-17 19:16 | CTR_ITS ---
PROCEDURE INFORMATION: Exam: CT Abdomen And Pelvis With Contrast Exam date and time: 09/17/2020 7:25 PM Age: 35 years old Clinical indication: Abdominal pain; Right; Prior surgery; Surgery date: 6+ months; Surgery type: Hyst; Patient HX: C/O R flank pain w nausea and diarrhea; Additional info: Lower abd pain TECHNIQUE: Imaging protocol: Computed tomography of the abdomen and pelvis with intravenous contrast. Radiation optimization: All CT scans at this facility use at least one of these dose optimization techniques: automated exposure control; mA and/or kV adjustment per patient size (includes targeted exams where dose is matched to clinical indication); or iterative reconstruction. Contrast material: OMNI 300; Contrast volume: 95 ml; Contrast route: INTRAVENOUS (IV); COMPARISON: CT abdomen pelvis w con* [id number] 05/04/2020 7:51 PM RADIATION DOSE METRICS: Total DLP (mGy-cm): 1980.38 FINDINGS: Liver: Normal. No mass. Gallbladder and bile ducts: Normal. No calcified stones. No ductal dilation. Pancreas: Normal. No ductal dilation. Spleen: Normal. No splenomegaly. Adrenal glands: Normal. No mass. Kidneys and ureters: A tiny renal stone is present in the superior pole of the left kidney. No ureteral stone or hydronephrosis. The right kidney appears normal. Stomach and bowel: Unremarkable. No obstruction. No mucosal thickening. Appendix: The appendix is normal. Intraperitoneal space: Unremarkable. No free air. No significant fluid collection. Vasculature: Unremarkable. No abdominal aortic aneurysm. Lymph nodes: Unremarkable. No enlarged lymph nodes. Urinary bladder: Unremarkable as visualized. Reproductive: The uterus has been removed. Bones/joints: Unremarkable. No acute fracture. Soft tissues: Unremarkable. CT/CT abdomen pelvis w con* [id number] IMPRESSION: No acute abnormality is seen in the abdomen or pelvis. Nonobstructing left kidney renal stone is noted. The appendix is normal. Radiation Dose CTDIVOL = (mGy): DLP = 1981.38 (mGy-cm)
[2020-09-17] MEDS: sodium chloride 0.9% 1,000 ML 999 ML IV (19:23)
[2020-09-17] MEDS: ketorolac 30 mg/mL INJ IVP (19:23)
--- NOTE | 2020-09-17 19:35 | PC.NURSE ---
pt sitting in bed and stated she has tingling to right hand and is worried. Listen to patients concerns. Sister stated several concerns, listen and provided comfort to pt with repositioning. UPdated with CT
[2020-09-17] MEDS: iohexol 300 mg/mL 100 mL Btl IV (19:52)
--- NOTE | 2020-09-17 20:27 | PC.NURSE ---
Pt stated no longer having tingling to right hand. Pt waiting for CT results. no needs
--- NOTE | 2020-09-17 20:48 | PC.NURSE ---
Notified provider CT results. Pt denies pain.
--- NOTE | 2020-09-17 21:40 | PC.NURSE ---
Standby assist with provider for rectal area exam
== END 2020-09-17 22:09 | disposition home or self-care (01) ==
PROVIDERS: Emergency Medicine; Emergency Provider Emergency Medicine
DX: K62.89 Other specified diseases of anus and rectum (principal)
CPT/HCPCS: 12345; 74177; 80053; 81001; 81025; 83690; 85025; 96361; 96374; 99283; J1885; J7030; Q9967

== ENCOUNTER 2020-09-28 17:53 | Emergency (ER) | payer MEDICAID, SELFPAY ==
[2020-09-28 17:55] VITALS: BP 150/94; PULSE 106; RESP 18; TEMP 36.7; O2SAT 96; BMI 44.6
--- NOTE | 2020-09-28 18:08 | XR_ITS ---
WS: [id number] RIGHT FOREARM 2 VIEWS HISTORY: injury COMPARISON: 01/10/2018 No fracture or dislocation. There is mild posterior bowing of the mid ulna with overlying soft tissue edema. The bowing was also noted on the prior study from 2018. Radius is intact. XR/XR forearm RT 2V [id number] IMPRESSION: Chronic mild bowing of the mid ulna. No fracture.
--- NOTE | 2020-09-28 18:08 | XR_ITS ---
WS: [id number] RIGHT WRIST: 3 VIEW(S) TECHNIQUE: PA, oblique and lateral. HISTORY: injury COMPARISON: 06/01/2011 No acute fracture or dislocation. No joint space abnormality. No soft tissue swelling. XR/XR wrist RT min 3V* [id number] IMPRESSION: Negative RIGHT wrist.
--- NOTE | 2020-09-28 18:08 | XR_ITS ---
WS: [id number] RIGHT ELBOW: 3 VIEW(S) TECHNIQUE: AP, oblique and lateral. HISTORY: injury COMPARISON: 01/10/2018 No acute fractures or dislocation. No joint effusion. Mild soft tissue edema along the dorsal surface of the proximal to mid radius. XR/XR elbow RT min 3V* [id number] IMPRESSION: Normal RIGHT elbow.
--- NOTE | 2020-09-28 18:09 | W.ED.EXTPRO ---
HPI - Extremity Problem General: Chief complaint: Extremity Injury, Upper Stated complaint: right arm injury Time Seen by Provider: 09/28/20 18:06 Source: patient Mode of arrival: ambulatory Limitations: no limitations History of Present Illness: HPI Narrative: 35-year-old female states she tripped and fell on the ground just prior to arrival. She states she landed on her right elbow and has bruising to her right elbow along with pain into her forearm and wrist. States her pain is a 6 out of 10. Denies any other injuries. Denies any pain in her shoulder denies hitting her head. States her pain is worse with palpation movement and improved with rest. Associated symptoms: Deny chest pain, fever(s) or rash Review of Systems Const: Denies: fever(s), chills, body aches or change in appetite Eyes: Denies: blurry vision or eye discomfort ENMT: Denies: throat pain or dental pain Card: Denies: chest pain Resp: Denies: dyspnea GI: Denies: abdominal pain, nausea, vomiting or diarrhea : Denies: dysuria Musc: Reports: joint pain Skin/Breast: Denies: rash Neuro: Denies: headache(s) Psych: Denies: depression Zacarias/Lymph: Denies: easy bruising All/Imm: Denies: urticaria PFSH ED PFSH: Medical History (Updated 09/28/20 @ 18:28 by Randa Howard MD) Generalized anxiety disorder History of PCOS Intellectual delay Obesity Surgical History H/O esophagogastroduodenoscopy History of hysterectomy (~2019) Family History Denies family history of Anesthesia complication Bleeding disorder Social History Smoking and tobacco status: never smoked Second hand smoke exposure: No Alcohol intake: never Desire information about alcohol rehabilitation?: No Desire information about substance/drug rehabilitation?: No Adopted: No Caregiver/support person: Yes Lives independently: Yes Household members: spouse and friend(s) Housing: House Marital status: service: No Current occupational status: unemployed Current occupational exposures/hazards: No Pets and animals: No History of recent travel: No Sexually active: Yes Current gender identity: Female Salome/Confucianist: Nondenominational Special salome needs: No Agree to transfusion: No Financial difficulty paying for basics: Decline to Answer Physical Exam Const: COMMON NORMALS: no acute distress, patient oriented x3 and healthy appearing HENMT: COMMON NORMALS: normocephalic and atraumatic HEAD & SCALP: normocephalic and atraumatic Eye: COMMON NORMALS: Equal, round and reactive pupils present and EOMs intact bilaterally PUPIL: Yes Equal, round and reactive pupils present Neck/C-Spine: COMMON NORMALS: full ROM and supple Chest: COMMONS NORMALS: normal inspection of the chest and normal palpation of entire chest wall Resp: COMMON NORMALS: normal respiratory effort, No retractions, No use of accessory muscles and clear to auscultation bilaterally AUSCULTATION: clear to auscultation bilaterally Cardio: COMMON NORMALS: regular rate, regular rhythm and No murmurs present (Cardio) RATE: regular rate RHYTHM: regular rhythm GI: COMMON NORMALS: Normal to inspection, nondistended, normoactive bowel sounds present, Soft to palpation, non-tender and no masses PALPATION: Yes Soft to palpation Extremity: COMMON NORMALS: full ROM NARRATIVE EXTREMITY EXAM: Tenderness and bruising to right elbow forearm and wrist no obvious deformity distal pulses intact Neuro: COMMON NORMALS: patient oriented x3, moves all extremities and no focal motor deficits Psych: COMMON NORMALS: mental status grossly normal, Normal thought process present and cooperative THOUGHT PROCESS: Normal thought process present Skin: COMMON NORMALS: no rashes or lesions noted and no wounds GENERAL SKIN EXAM: no rashes or lesions noted Course Vital Signs: Vital signs: Vital Signs Temperature 98.1 F 09/28/20 17:55 Pulse Rate 106 H 09/28/20 17:55 Respiratory Rate 18 09/28/20 17:55 Blood Pressure 150/94 09/28/20 17:55 Pulse Oximetry 96 09/28/20 17:55 MDM - Extremity (Nontraumatic) MDM Narrative: Medical decision making narrative: Patient presents here with elbow contusion from a fall. Patient's x-rays here are negative. Patient is stable for discharge and is to ice and rest. She is return if worsening. She is to follow-up with PCP in 2 to 4 days. Imaging Data^: X-ray right wrist: Attestation: I personally reviewed and interpreted this imaging study as follows: My impression: No acute fracture X-ray right forearm: Attestation: I personally reviewed and interpreted this imaging study as follows: My impression: No acute fracture X-ray right elbow: My impression: No acute fracture Discharge Plan Discharge Patient Disposition: Home Clinical Impression: Contusion of elbow Fall Qualifiers: Encounter type: initial encounter Qualified Code(s): W19.XXXA - Unspecified fall, initial encounter Condition: Stable Prescriptions: New Naprosyn 500 mg tablet 500 mg PO BID PRN (Reason: pain) Qty: 20 RF: 0 No Action Anusol-HC 25 mg suppository 25 mg OR BID Qty: 12 RF: 0 Tylenol Extra Strength 500 mg Tablet 1,000 mg PO PRN RF: 0 fluoxetine 20 mg capsule 20 mg PO DAILY RF: 0 naproxen 500 mg tablet 500 mg PO BID PRN (Reason: Pain) RF: 0 hydrocodone-acetaminophen 5-325 mg tablet 1 tab PO Q6H PRN (Reason: pain) Qty: 14 RF: 0 Discharge Orders: Discharge Order (Routine); Ordered 09/28/20 Ordered By: Randa Howard Discharge Diet: Advance as tolerated Discharge Activity: Resume usual activity Patient Instructions: Contusion in Adults (ED) Coding Level of Care Code ED Haunted History Tour Guide for Vilma Herrera Exam Comprehensive
== END 2020-09-28 18:34 | disposition home or self-care (01) ==
PROVIDERS: Emergency Provider Emergency Medicine
DX: S50.01XA Contusion of right elbow, initial encounter (principal); W01.0XXA Fall on same level from slipping, tripping and stumbling without subsequent striking against object, initial encounter
CPT/HCPCS: 12345; 73080; 73090; 73110; 99281; 99282

== ENCOUNTER 2020-11-02 14:10 | Emergency (ER) | payer MEDICAID, SELFPAY ==
[2020-11-02 14:16] VITALS: BP 154/110; PULSE 95; RESP 24; TEMP 36.9; O2SAT 96; BMI 45.4
--- NOTE | 2020-11-02 14:42 | XRR_ITS ---
PROCEDURE INFORMATION: Exam: XR Chest, 1 View Exam date and time: 11/02/2020 2:50 PM Age: 35 years old Clinical indication: Shortness of breath; Additional info: Covid. Pna? TECHNIQUE: Imaging protocol: XR of the chest Views: 1 view. COMPARISON: CR (CHEST, ) 04/09/2020 1:30 PM FINDINGS: Lungs: Unremarkable. No consolidation. Pleural space: Unremarkable. No pleural effusion. No pneumothorax. Heart/Mediastinum: Unremarkable. No cardiomegaly. Bones/joints: Unremarkable. XR/XR chest 1V portable [id number] IMPRESSION: No acute findings.
--- NOTE | 2020-11-02 14:47 | ED_ITS ---
HPI - COVID General: Chief Complaint: COVID symptoms Stated Complaint: COVID SYMPTOMS Time Seen by Provider: 11/02/20 14:18 Triage information: Has fever, cough or shortness of breath . Exposure to COVID + person last 14 days History of Present Illness: HPI Narrative: The patient is a 35-year-old female morbidly obese with developmental delay who comes to the ER complaining of cough and increasing shortness of breath for the past 2 weeks. She says her mother had Covid and she has been around here. MD complaint: reported COVID exposure and has COVID symptoms COVID 19 common symptoms: positive fever(s), chills, cough, non-productive cough, dyspnea, fatigue, body aches, headache(s), loss of sense of smell and/or taste and nasal congestion; negative throat pain or diarrhea COVID 19 other sytmptoms: negative chest pain Onset (ago): day(s) (14) Severity: mild COVID Results: SARS-CoV-2 Antigen (Rapid) Negative (Negative) 11/02/20 15:01 11/02/20 SARS-CoV-2 RNA (RT-PCR) Not detected (NOT DETECTED) 08/22/20 16:28 08/22/20 Review of Systems General: Reports: 10 or more systems reviewed and unremarkable except in HPI and below Const: Reports: fever(s), chills, body aches and fatigue Eyes: Denies: change in vision, blurry vision or eye redness ENMT: Reports: hoarseness and nasal congestion; Denies: throat pain, swelling of lips/tongue or ear or mastoid pain Card: Denies: chest pain, palpitations, irregular heart rhythm, edema, dyspnea on exertion or orthopnea Resp: Reports: dyspnea and non-productive cough GI: Denies: abdominal pain, diarrhea or GI cramping : Denies: flank pain, difficulty voiding, urinary frequency or urinary urgency Musc: Denies: neck pain, back pain, extremity pain, joint pain, joint redness, limited range of motion or muscle weakness Skin/Breast: Denies: rash, pruritus, erythema, skin pain or skin tenderness Neuro: Reports: headache(s) Psych: Denies: anxiety or depression Endo: Denies: polyuria All/Imm: Denies: urticaria, throat swelling or tongue swelling PFSH ED PFSH: Medical History (Updated 11/02/20 @ 16:15 by Angel Echevarria MD) Generalized anxiety disorder History of PCOS Intellectual delay Obesity Surgical History H/O esophagogastroduodenoscopy History of hysterectomy (~2019) Family History Denies family history of Anesthesia complication Bleeding disorder Social History Smoking and tobacco status: never smoked Second hand smoke exposure: No Alcohol intake: never Desire information about alcohol rehabilitation?: No Desire information about substance/drug rehabilitation?: No Adopted: No Caregiver/support person: Yes Lives independently: Yes Household members: spouse and friend(s) Housing: House Marital status: service: No Current occupational status: unemployed Current occupational exposures/hazards: No Pets and animals: No History of recent travel: No Sexually active: Yes Current gender identity: Female Salome/Episcopalian: Amish Special salome needs: No Agree to transfusion: No Financial difficulty paying for basics: Decline to Answer Physical Exam Const: COMMON NORMALS: no acute distress, average body habitus, patient oriented x3, no limitations, healthy appearing, alert and well nourished GENERAL APPEARANCE: cooperative, comfortable, well kempt and well developed ORIENTATION/CONSCIOUSNESS: Yes awake, Yes oriented to person, Yes oriented to place and Yes oriented to time HENMT: COMMON NORMALS: normocephalic, external ears normal and Normal external nose present HEAD & SCALP: normal to inspection and normocephalic NOSE: Normal external nose present EXTERNAL EAR: Yes external ears normal MOUTH: Normal oral and palatal mucosa present THROAT: posterior oropharynx normal Eye: COMMON NORMALS: Equal, round and reactive pupils present and EOMs intact bilaterally GENERAL EYE: appearance normal, both eyes and all related structures PUPIL: Yes Equal, round and reactive pupils present Neck/C-Spine: COMMON NORMALS: full ROM, no lymphadenopathy, no meningeal signs and no JVD GENERAL: Yes normal visual inspection Lymph: LYMPHATIC: no lymphadenopathy noted Chest: COMMONS NORMALS: normal inspection of the chest and normal palpation of entire chest wall Resp: COMMON NORMALS: normal respiratory effort, No retractions, No use of accessory muscles, clear to auscultation bilaterally and percussion normal EFFORT & INSPECTION: Yes able to speak in complete sentences AUSCULTATION: clear to auscultation bilaterally PERCUSSION: percussion normal Cardio: COMMON NORMALS: no JVD, regular rate, regular rhythm, S1 normal heart sound present, S2 normal heart sound present and Peripheral pulses 2+ throughout RATE: regular rate RHYTHM: regular rhythm HEART SOUNDS: S1 normal heart sound present and S2 normal heart sound present PERIPHERAL PULSES: Peripheral pulses 2+ throughout GI: COMMON NORMALS: Normal to inspection, nondistended, normoactive bowel sounds present, Soft to palpation, non-tender and no masses INSPECTION: Yes normal to inspection PALPATION: Yes Soft to palpation : COMMON NORMALS: Yes no CVA tenderness BLADDER/KIDNEY EXAM: Yes no CVA tenderness Back/Pelvis: COMMON NORMALS: no CVA tenderness, thoracic and lumbar spine normal to inspection, no thoracic nor lumbar tenderness and thoraco-lumbar ROM normal Extremity: COMMON NORMALS: normal to inspection, full ROM, capillary refill normal, no joint enlargement and no pedal edema GENERAL: Yes normal exam except as noted Neuro: COMMON NORMALS: patient oriented x3, CN's II-XII intact bilaterally, moves all extremities, no focal motor deficits, no sensory deficits noted and gait normal SENSORIUM/ORIENTATION: Yes alert, Yes oriented to person, Yes oriented to place and Yes oriented to time MENINGEAL SIGNS: Yes no meningeal signs Psych: COMMON NORMALS: mental status grossly normal, Normal thought process present, cooperative, normal affect and speech normal APPEARANCE: Yes well kempt ATTITUDE: Yes calm SPEECH: Yes normal speech THOUGHT PROCESS: Normal thought process present Skin: COMMON NORMALS: no rashes or lesions noted GENERAL SKIN EXAM: no rashes or lesions noted Course Vital Signs: Vital signs: Vital Signs Temperature 98.5 F 11/02/20 14:16 Pulse Rate 92 11/02/20 15:39 Respiratory Rate 18 11/02/20 15:39 Blood Pressure 160/90 11/02/20 15:06 Pulse Oximetry 95 11/02/20 15:39 MDM - COVID MDM Narrative: Medical decision making narrative: Her rapid Covid swab came back negative. We will swab her again with a PCR test. Told the patient I will discharge her with azithromycin and if she receives a call saying the Covid test came back positive she can return to the ER for a BAM infusion. She may also return to the ER at anytime with worsening symptoms. Lab Data: Labs: Lab Results 11/02/20 Range/Units 15:01 SARS-CoV-2 Ag (Rap id) Negative (Negative) COVID Results: SARS-CoV-2 Antigen (Rapid) Negative (Negative) 11/02/20 15:01 11/02/20 SARS-CoV-2 RNA (RT-PCR) Not detected (NOT DETECTED) 08/22/20 16:28 08/22/20 Discharge Plan Discharge Patient Disposition: Home Clinical Impression: Upper respiratory infection Qualifiers: URI type: unspecified viral URI Qualified Code(s): J06.9 - Acute upper respiratory infection, unspecified Condition: Stable Prescriptions: New azithromycin 250 mg tablet 250 mg PO DAILY 6 Days RF: 0 No Action acetaminophen [Tylenol Extra Strength] 500 mg Tablet 1,000 mg PO PRN RF: 0 Discharge Orders: Discharge ED (Routine); Ordered 11/02/20 Ordered By: Angel Echevarria Discharge Diet: Usual diet Discharge Activity: Resume usual activity Patient Instructions: Viral Syndrome (ED), Upper Respiratory Infection - Adult Activity Restrictions/Additional Instructions: You have an upper respiratory infection. Please take the antibiotics as directed. You will receive a call if your Covid test comes back positive. If so please return to the ER for a BAM infusion which is an antibody effective against coronavirus. Also return to the ER with worsening symptoms at any time. Coding Level of Care Code ED Oral And Maxillofacial Pathologist for Vilma Fwjerry Exam Comprehensive
[2020-11-02 15:06] VITALS: BP 160/90; PULSE 93; RESP 17; O2SAT 95
[2020-11-02 15:11] VITALS: O2SAT 95
[2020-11-02 15:39] VITALS: PULSE 92; RESP 18; O2SAT 95
[2020-11-02] MEDS: albuterol 8 gm MDI 2 PUFF INHALATION (15:39)
[2020-11-02] MEDS: azithromycin 250 mg Tablet 500 MG PO (16:15)
[2020-11-02 16:32] VITALS: BP 140/94; PULSE 93; RESP 14; O2SAT 95
[2020-11-03 15:43] LABS: Quest SARS-CoV-2 RNA NOT DETECTED (NOT DETECTED)
--- NOTE | 2020-11-03 17:58 | PC.NURSE ---
Called patient to report COVID results. Unable to leave message on patients phone at this time.
--- NOTE | 2020-11-04 08:13 | PC.NURSE ---
Patient called to give COVID results but no answer. Message left on patients phone at this time.
--- NOTE | 2020-11-04 16:32 | PC.NURSE ---
Addendum entered by Saba Soliman RN 11/04/20 16:33: Letter will be sent to patient. Original Note: Patient called again to be notified of COVID results but no answer. Message left on patients phone.
--- NOTE | 2020-11-06 13:16 | DCPLANNER ---
social media sr strategy manager had message to speak with patient about getting established with a primary care physician. social media sr strategy manager called phone number [phone], unable to speak with patient and unable to leave a voicemail for patient.
== END 2020-11-02 16:32 | disposition home or self-care (01) ==
PROVIDERS: Emergency Provider Family Medicine
DX: J06.9 Acute upper respiratory infection, unspecified (principal)
CPT/HCPCS: 12345; 71045; 87635; 94640; 99281; 99283; J3535; Q0144

== ENCOUNTER 2021-03-14 12:24 | Outpatient (CLI) | payer MEDICAID, SELFPAY ==
--- NOTE | 2021-03-14 12:28 | XR_ITS ---
WS: [id number] Left hip, AP and frog leg views, 03/14/2021 Clinical Data: LEFT HIP PAIN Comparison: None. Findings: No fractures or dislocations are seen. The hip joint is intact. The soft tissues are not remarkable. The adjacent pelvis is normal. XR/XR hip LT 2-3V wo/w pel* [id number] Impression: Negative left hip.
== END 2021-03-14 12:25 | disposition home or self-care (01) ==
PROVIDERS: Visit Provider Nurse Practitioner Family
DX: M25.552 Pain in left hip (principal)
CPT/HCPCS: 73502

== ENCOUNTER 2021-06-01 22:58 | Emergency (ER) | payer MEDICAID, SELFPAY ==
[2021-06-01 23:02] VITALS: BP 146/72; PULSE 78; RESP 24; TEMP 36.7; O2SAT 95; BMI 45.4
--- NOTE | 2021-06-01 23:15 | ED_ITS ---
HPI - Dental/Oral General: Chief complaint: Dental/Oral Stated complaint: Rt side of head and mouth hurt Time Seen by Provider: 06/01/21 23:03 History of Present Illness: HPI Narrative: Patient is a 36-year-old female comes to the ED with dental pain on right side. Symptoms started yesterday. She has been taking some Tylenol for pain. She does not currently have a dentist and is calling around dental offices to get an appointment set up. Associated symptoms: Denies fever(s) or odynophagia Review of Systems Const: Denies: fever(s), chills or fatigue Eyes: Denies: change in vision or eye discomfort ENMT: Reports: dental pain; Denies: throat pain, odynophagia, nasal discharge or nasal congestion Card: Denies: chest pain, palpitations, edema, swelling of feet/ankles, dyspnea on exertion or orthopnea Resp: Denies: dyspnea, productive cough or non-productive cough GI: Denies: abdominal pain, nausea, vomiting, diarrhea, constipation or hematochezia : Denies: flank pain, dysuria or hematuria Musc: Denies: neck pain, back pain or extremity swelling Skin/Breast: Denies: rash or new lesions Neuro: Denies: headache(s), numbness in extremities or weakness in extremities PFSH ED PFSH: Medical History Generalized anxiety disorder History of PCOS Intellectual delay Obesity Surgical History H/O esophagogastroduodenoscopy History of hysterectomy (~2019) Family History Denies family history of Anesthesia complication Bleeding disorder Social History Smoking and tobacco status: never smoked Second hand smoke exposure: No Alcohol intake: never Desire information about alcohol rehabilitation?: No Desire information about substance/drug rehabilitation?: No Adopted: No Caregiver/support person: Yes Lives independently: Yes Household members: spouse and friend(s) Housing: House Marital status: service: No Current occupational status: unemployed Current occupational exposures/hazards: No Pets and animals: No History of recent travel: No Sexually active: Yes Current gender identity: Female Salome/Holiness: Yarsanism Special salome needs: No Agree to transfusion: No Financial difficulty paying for basics: Decline to Answer Physical Exam Const: COMMON NORMALS: no acute distress, patient oriented x3 and alert GENERAL APPEARANCE: cooperative and comfortable HENMT: COMMON NORMALS: normocephalic HEAD & SCALP: normocephalic MOUTH: Normal oral and palatal mucosa present TEETH & GINGIVA: Yes abnormal tooth and associated gingiva, Yes caries and Yes poor dentition THROAT: posterior oropharynx normal and uvula midline OTHER: Patient has extensive dental caries and gingival edema around both back upper and lower right molars. Neck/C-Spine: COMMON NORMALS: supple GENERAL: Yes normal visual inspection Resp: COMMON NORMALS: normal respiratory effort, No retractions, No use of accessory muscles and clear to auscultation bilaterally AUSCULTATION: clear to auscultation bilaterally Cardio: COMMON NORMALS: regular rate, regular rhythm, S1 normal heart sound present, S2 normal heart sound present, No gallops present (Cardio), No clicks present (Cardio), No murmurs present (Cardio) and Peripheral pulses 2+ throughout RATE: regular rate RHYTHM: regular rhythm HEART SOUNDS: S1 normal heart sound present and S2 normal heart sound present PERIPHERAL PULSES: Peripheral pulses 2+ throughout GI: COMMON NORMALS: Normal to inspection, nondistended, normoactive bowel sounds present, Soft to palpation, non-tender and no masses PALPATION: Yes Soft to palpation : COMMON NORMALS: Yes no CVA tenderness BLADDER/KIDNEY EXAM: Yes no CVA tenderness Back/Pelvis: COMMON NORMALS: no CVA tenderness Extremity: COMMON NORMALS: normal to inspection Neuro: COMMON NORMALS: patient oriented x3 and moves all extremities SENSORIUM/ORIENTATION: Yes alert Skin: GENERAL SKIN EXAM: dry skin Course Vital Signs: Vital signs: Vital Signs Temperature 98.0 F 06/01/21 23:02 Pulse Rate 78 06/01/21 23:37 Respiratory Rate 24 H 06/01/21 23:02 Blood Pressure 146/72 06/01/21 23:02 Pulse Oximetry 98 06/01/21 23:37 MDM - Dental/Oral MDM Narrative: Medical decision making narrative: Patient is a 36-year-old female comes to the ED with dental pain. Patient has extensive dental caries. She was discharged home with a prescription for clindamycin and ibuprofen 800 mg. She was told to set up an appointment with a dentist for further evaluation of dental pain. Discharge Plan Discharge Patient Disposition: Home Clinical Impression: Pain due to dental caries Condition: Stable Prescriptions: New clindamycin HCl 150 mg capsule 300 mg PO QID 7 Days Qty: 56 RF: 0 ibuprofen 800 mg tablet 800 mg PO Q8H PRN (Reason: pain) Qty: 15 RF: 0 No Action acetaminophen [Tylenol Extra Strength] 500 mg Tablet 1,000 mg PO PRN RF: 0 Discharge Orders: Discharge ED (Routine); Ordered 06/01/21 Ordered By: Johnnie Cornelius Discharge Diet: Regular Discharge Activity: Resume usual activity Patient Instructions: Dental Caries (ED) Activity Restrictions/Additional Instructions: Contact dentist and get an appointment set up with them to have dental pain evaluated. Take medications as prescribed. Return to the ER or your medical provider if condition worsens. Please read and understand discharge instructions. Thank you for choosing [facility] for your healthcare needs today. Please realize this is an emergency room and that we are providing you with a medical screening exam and this may not be complete and all inclusive of all the testing and or work up that you may need to determine your ailment or severity of your illness. It is very important that you follow up as instructed or that you return to the Emergency Department should you have concerns or if your condi tion changes or worsens in any way. Coding Level of Care Code ED Dehydrogenation Converter Operator for Vilma Herrera Exam Comprehensive
[2021-06-01 23:23] VITALS: PULSE 78; O2SAT 98
[2021-06-01] MEDS: HYDROcodone-acetaminophen 7.5-325 mg Tablet 1 TAB PO (23:36)
[2021-06-01] MEDS: clindamycin 150 mg Capsule 300 MG PO (23:36)
[2021-06-01 23:37] VITALS: PULSE 78; O2SAT 98
== END 2021-06-01 23:38 | disposition home or self-care (01) ==
PROVIDERS: Emergency Provider Physician Assistant
DX: E66.9 Obesity, unspecified (principal); Z68.42 Body mass index [BMI] 45.0-49.9, adult
CPT/HCPCS: 99283

== ENCOUNTER 2021-07-31 15:13 | Emergency (ER) | payer MEDICAID, SELFPAY ==
[2021-07-31 15:36] VITALS: BP 166/84; PULSE 80; RESP 18; TEMP 36.7; O2SAT 98
[2021-07-31 17:29] VITALS: BP 165/81; PULSE 80; O2SAT 98
--- NOTE | 2021-07-31 17:31 | ED_ITS ---
HPI - Animal Bite General: Chief Complaint: Animal Bite Stated Complaint: YELLOW JACKET STING X2 Time Seen by Provider: 07/31/21 17:30 History of Present Illness: HPI narrative: Patient comes in for evaluation of yellowjacket stings to the left forearm and left breast. Patient reported some significant pain which has improved since arriving to the ER. Patient's mother brought patient in to be evaluated due to concerns that there may be an allergy. Review of Systems General: Reports: 10 or more systems reviewed and unremarkable except in HPI and below Skin/Breast: Reports: other (To wasp stings) [facility] ED PFSH: Medical History (Updated 07/31/21 @ 17:32 by SANTANA Elizabeth) Generalized anxiety disorder History of PCOS Intellectual delay Obesity Surgical History H/O esophagogastroduodenoscopy History of hysterectomy (~2019) Family History Denies family history of Anesthesia complication Bleeding disorder Social History Smoking and tobacco status: never smoked Second hand smoke exposure: No Alcohol intake: never Desire information about alcohol rehabilitation?: No Desire information about substance/drug rehabilitation?: No Adopted: No Caregiver/support person: Yes Lives independently: Yes Household members: spouse and friend(s) Housing: House Marital status: service: No Current occupational status: unemployed Current occupational exposures/hazards: No Pets and animals: No History of recent travel: No Sexually active: Yes Current gender identity: Female Salome/Scientologist: Yazdanism Special salome needs: No Agree to transfusion: No Financial difficulty paying for basics: Decline to Answer Physical Exam Const: COMMON NORMALS: no acute distress and patient oriented x3 GENERAL APPEARANCE: cooperative HENMT: COMMON NORMALS: normocephalic and Normal external nose present HEAD & SCALP: normal to inspection and normocephalic NOSE: Normal external nose present MOUTH: Normal oral and palatal mucosa present THROAT: posterior oropharynx normal Eye: GENERAL EYE: appearance normal, both eyes and all related structures Neck/C-Spine: COMMON NORMALS: full ROM Chest: COMMONS NORMALS: normal inspection of the chest Resp: COMMON NORMALS: normal respiratory effort and clear to auscultation bilaterally EFFORT & INSPECTION: Yes able to speak in complete sentences AUSCULTATION: clear to auscultation bilaterally Cardio: COMMON NORMALS: regular rate and regular rhythm RATE: regular rate RHYTHM: regular rhythm GI: COMMON NORMALS: non-tender Extremity: COMMON NORMALS: normal to inspection Neuro: COMMON NORMALS: patient oriented x3 and moves all extremities Psych: COMMON NORMALS: mental status grossly normal and cooperative Skin: NARRATIVE SKIN EXAM: Patient has 2 insect bites 1 to the left forearm and one to the left lateral breast. There is a 1 cm area of redness around the lesion. No significant surrounding swelling or ecchymosis is noted to the wound. Course Vital Signs: Vital signs: Vital Signs Temperature 98.1 F 07/31/21 15:36 Pulse Rate 80 07/31/21 17:29 Respiratory Rate 18 07/31/21 15:36 Blood Pressure 165/81 07/31/21 17:29 Pulse Oximetry 98 07/31/21 17:29 MDM - Animal Bite MDM Narrative: Medical decision making narrative: Patient comes in for evaluation of insect bite stings. On exam we note 2 lesions 1 to the forearm and one to the left breast. No significant swelling or respiratory difficulty is noted. Differential diagnosis local reaction to insect bite, anaphylaxis, pain to the insect bite. No signs of serious illness or injury is noted. Reviewed exam with patient with recommendations for treatment. Patient reported understanding and agreed to plan. Patient was given triamcinolone cream to use twice a day to each of the insect bites until healed. Patient was also recommended use acetaminophen and ibuprofen for pain. Discharge Plan Discharge Patient Disposition: Home Clinical Impression: Sting, wasp Qualifiers: Encounter type: initial encounter Injury intent: accidental or unintentional Qualified Code(s): T63.461A - Toxic effect of venom of wasps, accidental (unintentional), initial encounter Condition: Stable Prescriptions: New triamcinolone acetonide 0.1 % cream 1 applic topical BID Qty: 15 RF: 0 No Action acetaminophen [Tylenol Extra Strength] 500 mg Tablet 1,000 mg PO PRN RF: 0 ibuprofen 800 mg tablet 800 mg PO Q8H PRN (Reason: pain) Qty: 15 RF: 0 Discharge Orders: Discharge ED (Routine); Ordered 07/31/21 Ordered By: Tushar Jose Referrals: Paradise Che FNP [Primary Care Provider] - Discharge Diet: Usual diet Discharge Activity: Increase activity as tolerated Patient Instructions: Insect Bites and Stings, Opioid Safety Activity Restrictions/Additional Instructions: Use steroid cream twice a day to the insect bites for redness and swelling. Use acetaminophen and ibuprofen for pain. Follow-up with primary care. Coding Level of Care Code ED Software Tools Engineer for Vilma Herrera
== END 2021-07-31 17:41 | disposition home or self-care (01) ==
PROVIDERS: Emergency Provider Nurse Practitioner Family; PCP Nurse Practitioner Family
DX: T63.461A Toxic effect of venom of wasps, accidental (unintentional), initial encounter (principal)
CPT/HCPCS: 99282

== ENCOUNTER 2021-09-05 16:05 | Emergency (ER) | payer MEDICAID, SELFPAY ==
--- NOTE | 2021-09-05 16:09 | XR_ITS ---
WS: [id number] Exam: XR ankle LT min 3V* [id number] Date/Time of Exam: 09/05/2021 4:09 PM Reason For Exam: injury with ankle pain Findings: Multiple views of the ankle reveal no fracture or displacements of bone. No soft tissue swelling is present. There are no periosteal reactions noted. The talus and calcaneus are in adequate position. The joint space is smooth and equidistant. XR/XR ankle LT min 3V* [id number] IMPRESSION: Negative left ankle.
[2021-09-05 16:27] VITALS: BP 137/99; PULSE 88; RESP 16; TEMP 36.2; O2SAT 96; BMI 43.8
--- NOTE | 2021-09-05 16:33 | W.ED.EXTPRO ---
HPI - Extremity Problem General: Chief complaint: Extremity Injury, Lower Stated complaint: L ANKLE INJURY - FELL IN YARD Time Seen by Provider: 09/05/21 16:33 History of Present Illness: HPI Narrative: Patient is a 36-year-old female comes to the ED with left ankle injury. Around noon today she was out in her yard and stepped in a hole with her left foot. This caused her to twist her left ankle. She is now having pain and swelling in her left ankle. Says it hurts for her to ambulate or any weightbearing on left foot.. She rates her pain currently an 8 out of 10. She has not taken anything for pain before coming to the ED. Associated symptoms: Deny chest pain, fever(s) or rash Review of Systems Const: Denies: fever(s), chills or fatigue Eyes: Denies: change in vision or eye discomfort ENMT: Denies: throat pain, odynophagia, nasal discharge or nasal congestion Card: Denies: chest pain, palpitations, edema, swelling of feet/ankles, dyspnea on exertion or orthopnea Resp: Denies: dyspnea, productive cough or non-productive cough GI: Denies: abdominal pain, nausea, vomiting, diarrhea, constipation or hematochezia : Denies: flank pain, dysuria or hematuria Musc: Reports: extremity pain (left ankle) and extremity swelling (left ankle); Denies: neck pain or back pain Skin/Breast: Denies: rash or new lesions Neuro: Denies: headache(s), numbness in extremities or weakness in extremities FOR[facility] ED PFSH: Medical History Generalized anxiety disorder History of PCOS Intellectual delay Obesity Surgical History H/O esophagogastroduodenoscopy History of hysterectomy (~2019) Family History Denies family history of Anesthesia complication Bleeding disorder Social History Smoking and tobacco status: never smoked Second hand smoke exposure: No Alcohol intake: never Desire information about alcohol rehabilitation?: No Desire information about substance/drug rehabilitation?: No Adopted: No Caregiver/support person: Yes Lives independently: Yes Household members: spouse and friend(s) Housing: House Marital status: service: No Current occupational status: unemployed Current occupational exposures/hazards: No Pets and animals: No History of recent travel: No Sexually active: Yes Current gender identity: Female Salome/Catholic: Protestant Special salome needs: No Agree to transfusion: No Financial difficulty paying for basics: Decline to Answer Physical Exam Const: COMMON NORMALS: no acute distress, patient oriented x3 and alert GENERAL APPEARANCE: cooperative and comfortable NUTRITIONAL APPEARANCE: obese HENMT: COMMON NORMALS: normocephalic HEAD & SCALP: normocephalic MOUTH: Normal oral and palatal mucosa present THROAT: posterior oropharynx normal and uvula midline Neck/C-Spine: COMMON NORMALS: supple GENERAL: Yes normal visual inspection Resp: COMMON NORMALS: normal respiratory effort, No retractions, No use of accessory muscles and clear to auscultation bilaterally AUSCULTATION: clear to auscultation bilaterally Cardio: COMMON NORMALS: regular rate, regular rhythm, S1 normal heart sound present, S2 normal heart sound present, No gallops present (Cardio), No clicks present (Cardio), No murmurs present (Cardio) and Peripheral pulses 2+ throughout RATE: regular rate RHYTHM: regular rhythm HEART SOUNDS: S1 normal heart sound present and S2 normal heart sound present PERIPHERAL PULSES: Peripheral pulses 2+ throughout GI: COMMON NORMALS: Normal to inspection, nondistended, normoactive bowel sounds present, Soft to palpation, non-tender and no masses PALPATION: Yes Soft to palpation : COMMON NORMALS: Yes no CVA tenderness BLADDER/KIDNEY EXAM: Yes no CVA tenderness Back/Pelvis: COMMON NORMALS: no CVA tenderness Extremity: COMMON NORMALS: no pedal edema GENERAL: Yes normal exam except as noted LEFT LOWER EXTREMITY: Yes ankle joint Left ankle: Yes inspection (Mild swelling. No ecchymosis or deformity noted.), Yes palpation (Tenderness over anterior aspect of lateral malleolus.), Yes ROM (Limited due to pain) and Yes neurovascular exam (Neurovascular tact) Neuro: COMMON NORMALS: patient oriented x3 and moves all extremities SENSORIUM/ORIENTATION: Yes alert Skin: GENERAL SKIN EXAM: dry skin Course Vital Signs: Vital signs: Vital Signs Temperature 97.1 F L 09/05/21 16:27 Pulse Rate 88 09/05/21 16:27 Respiratory Rate 16 09/05/21 16:27 Blood Pressure 137/99 09/05/21 16:27 Pulse Oximetry 96 09/05/21 16:27 MDM - Extremity (Nontraumatic) MDM Narrative: Medical decision making narrative: Patient is a 36-year-old female comes to the ED with left ankle injury. Exam is benign and patient is neurovascular intact and has some mild tenderness upon palpation over the anterior aspect the lateral malleolus. X-ray of left ankle showed no acute fractures or findings. Patient diagnosed with ankle sprain and strain and discharged home with crutches and a prescription for ibuprofen 800 mg. She was told to follow-up with her PCP in 7 to 10 days for reevaluation. Return to ED precautions given. Patient understood and agreed with plan. Imaging Data^: Xray Ortho: Attestation: I personally reviewed and interpreted this imaging study as follows: Radiologist's impression: [address] [address] XRay Report Signed Patient: Roselia Mallory Unit #: [id number] : 1985 Age/Sex: 36 / F ADM Date: 09/05/21 Loc: ER Room/Bed: Attending Dr: Ordering Provider/Ordering MD: Johnnie Cornelius Date of Service: 09/05/21 Procedure(s): XR ankle LT min 3V* [id number] Accession Number(s): [id number] Report Number: [id number] WS: [id number] Exam: XR ankle LT min 3V* [id number] Date/Time of Exam: 09/05/2021 4:09 PM Reason For Exam: injury with ankle pain Findings: Multiple views of the ankle reveal no fracture or displacements of bone. No soft tissue swelling is present. There are no periosteal reactions noted. The talus and calcaneus are in adequate position. The joint space is smooth and equidistant. XR/XR ankle LT min 3V* [id number] IMPRESSION: Negative left ankle. Dictated By: Javon Leos DO Signed By: Javon Leos DO Signed Date/Time: 09/05/211623 DD/ 23 Discharge Plan Discharge Patient Disposition: Home Clinical Impression: Sprain and strain of ankle Condition: Stable Prescriptions: New ibuprofen 800 mg tablet 800 mg PO Q8H PRN (Reason: pain) Qty: 30 RF: 0 No Action acetaminophen [Tylenol Extra Strength] 500 mg Tablet 1,000 mg PO PRN RF: 0 ibuprofen 800 mg tablet 800 mg PO Q8H PRN (Reason: pain) Qty: 15 RF: 0 triamcinolone acetonide 0.1 % cream 1 applic topical BID Qty: 15 RF: 0 Discharge Orders: Discharge ED (Routine); Ordered 09/05/21 Ordered By: Johnnie Cornelius Referrals: Paradise Che FNP [Primary Care Provider] - Discharge Diet: Regular Discharge Activity: Resume usual activity Patient Instructions: Ankle Sprain (ED) Activity Restrictions/Additional Instructions: Follow-up with medical provider as directed in 7 to 10 days for reevaluation. Use crutches for the next 3 days and limit weightbearing then advance weightbearing and activity as tolerated. Rest, ice, elevate and wrap ankle with Michael wrap to help with swelling. Take medications as prescribed. Return to the ER or your medical provider if condition worsens. Please read and understand discharge instructions. Thank you for choosing [facility] for your healthcare needs today. Please realize this is an emergency room and that we are providing you with a medical screening exam and this may not be complete and all inclusive of all the testing and or work up that you may need to determine your ailment or severity of your illness. It is very important that you follow up as instructed or that you return to the Emergency Department should you have concerns or if your condition changes or worsens in any way. Coding Level of Care Code ED Certified Technician for Vilma Herrera Exam Comprehensive
[2021-09-05] MEDS: HYDROcodone-acetaminophen 5-325 mg Tablet 1 TAB PO (16:49)
== END 2021-09-05 17:00 | disposition home or self-care (01) ==
LOC: ER 16:42
PROVIDERS: Emergency Provider Physician Assistant; PCP Nurse Practitioner Family
DX: S93.402A Sprain of unspecified ligament of left ankle, initial encounter (principal); W17.2XXA Fall into hole, initial encounter; Y93.01 Activity, walking, marching and hiking; Y92.017 Garden or yard in single-family (private) house as the place of occurrence of the external cause
CPT/HCPCS: 73610; 99283; E0114

== ENCOUNTER 2021-10-30 22:09 | Emergency (ER) | payer MEDICAID, SELFPAY ==
[2021-10-30 22:19] VITALS: BP 135/94; PULSE 94; RESP 22; TEMP 36.6; O2SAT 97; BMI 46.2
--- NOTE | 2021-10-30 22:29 | XRR_ITS ---
PROCEDURE INFORMATION: Exam: XR Chest Exam date and time: 10/30/2021 10:29 PM Age: 36 years old Clinical indication: Cough and fever; Patient HX: Non productive cough with fever. ; Additional info: SOB TECHNIQUE: Imaging protocol: XR of the chest. Views: 1 view. COMPARISON: CR XR chest 1V portable [id number] 11/02/2020 2:39 PM FINDINGS: Lungs: Unremarkable. No consolidation. Pleural spaces: Unremarkable. No pleural effusion. No pneumothorax. Heart/Mediastinum: Unremarkable. No cardiomegaly. Bones/joints: Unremarkable. XR/XR chest 1V portable [id number] IMPRESSION: No acute findings.
--- NOTE | 2021-10-30 22:38 | ED_ITS ---
HPI - COVID General: Chief Complaint: COVID symptoms Stated Complaint: sob, cough, fever, n/v Time Seen by Provider: 10/30/21 22:28 Source: patient Mode of arrival: ambulatory Limitations: no limitations Triage information: Has fever, cough or shortness of breath . History of Present Illness: HPI Narrative: 36-year-old female who states she has had a cough for the last 3 days has had body aches as well and some wheezing. Has had fever up to 103 denies any shortness of breath at this time. She had Covid back in April 2020 she is not vaccinated. Patient's pulse ox here is 97%. She denies any worsening improving factors. No vomiting or diarrhea. COVID 19 common symptoms: positive chills, non-productive cough and body aches; negative headache(s), throat pain, nausea, vomiting or diarrhea COVID 19 other sytmptoms: negative chest pain COVID Results: SARS-CoV-2 RNA (RT-PCR) Not detected (NOT DETECTED) 11/02/20 16:16 11/02/20 Review of Systems Const: Reports: chills and body aches Eyes: Denies: blurry vision or eye discomfort ENMT: Denies: throat pain or dental pain Card: Denies: chest pain Resp: Reports: non-productive cough and wheezing GI: Denies: abdominal pain, nausea, vomiting or diarrhea : Denies: dysuria Musc: Denies: neck pain or back pain Skin/Breast: Denies: rash Neuro: Denies: headache(s) Psych: Denies: depression Zacarias/Lymph: Denies: easy bruising All/Imm: Denies: urticaria PFSH ED PFSH: Medical History (Updated 10/30/21 @ 22:40 by Randa Howard MD) Generalized anxiety disorder History of PCOS Intellectual delay Obesity Surgical History H/O esophagogastroduodenoscopy History of hysterectomy (~2018) Family History Denies family history of Anesthesia complication Bleeding disorder Social History Smoking and tobacco status: never smoked Second hand smoke exposure: No Alcohol intake: never Desire information about alcohol rehabilitation?: No Desire information about substance/drug rehabilitation?: No Adopted: No Caregiver/support person: Yes Lives independently: Yes Household members: spouse and friend(s) Housing: House Marital status: service: No Current occupational status: unemployed Current occupational exposures/hazards: No Pets and animals: No History of recent travel: No Sexually active: Yes Current gender identity: Female Salome/Temple: Adventist Special salome needs: No Agree to transfusion: No Financial difficulty paying for basics: Decline to Answer Physical Exam Const: COMMON NORMALS: no acute distress, patient oriented x3 and healthy appe aring HENMT: COMMON NORMALS: normocephalic and atraumatic HEAD & SCALP: normocephalic and atraumatic Eye: COMMON NORMALS: Equal, round and reactive pupils present and EOMs intact bilaterally PUPIL: Yes Equal, round and reactive pupils present Neck/C-Spine: COMMON NORMALS: full ROM and supple Chest: COMMONS NORMALS: normal inspection of the chest and normal palpation of entire chest wall Resp: COMMON NORMALS: normal respiratory effort, No retractions, No use of accessory muscles and clear to auscultation bilaterally AUSCULTATION: clear to auscultation bilaterally Cardio: COMMON NORMALS: regular rate, regular rhythm and No murmurs present (Cardio) RATE: regular rate RHYTHM: regular rhythm GI: COMMON NORMALS: Normal to inspection, nondistended, normoactive bowel sounds present, Soft to palpation, non-tender and no masses PALPATION: Yes Soft to palpation Extremity: COMMON NORMALS: normal to inspection and full ROM Neuro: COMMON NORMALS: patient oriented x3, moves all extremities and no focal motor deficits Psych: COMMON NORMALS: mental status grossly normal, Normal thought process present and cooperative THOUGHT PROCESS: Normal thought process present Skin: COMMON NORMALS: no rashes or lesions noted and no wounds GENERAL SKIN EXAM: no rashes or lesions noted Course Vital Signs: Vital signs: Vital Signs Temperature 97.9 F 10/30/21 22:19 Pulse Rate 94 10/30/21 22:19 Respiratory Rate 22 H 10/30/21 22:19 Blood Pressure 135/94 10/30/21 22:19 Pulse Oximetry 97 10/30/21 22:19 MDM - COVID MDM Narrative: Medical decision making narrative: Patient presents here with cough body aches wheezing symptoms consistent with viral upper respiratory infection or possible Covid will swab for Covid fluid call patient with results she is well-appearing here in no respiratory distress pulse ox normal no signs of pulmonary embolism or pneumonia x-ray here is clear patient given Decadron here will prescribe inhaler for home she is return if worsening she understands agrees to plan. Imaging Data: CXR: Attestation: I personally reviewed and interpreted this imaging study as follows: My impression: No acute abnormality COVID Results: SARS-CoV-2 RNA (RT-PCR) Not detected (NOT DETECTED) 11/02/20 16:16 11/02/20 Discharge Plan Discharge Patient Disposition: Home Clinical Impression: Upper respiratory infection, Suspected 2019 novel coronavirus infection Condition: Stable Prescriptions: New albuterol sulfate 90 mcg/actuation HFA aerosol inhaler 2 inh INHALATION Q6H PRN (Reason: shortness of breath or wheezing) Qty: 8 RF: 0 Tessalon Perles 100 mg capsule 100 mg PO Q6H PRN (Reason: cough) Qty: 20 RF: 0 No Action ibuprofen 800 mg tablet 800 mg PO Q8H PRN (Reason: pain) Qty: 30 RF: 0 acetaminophen [Tylenol Extra Strength] 500 mg Tablet 1,000 mg PO PRN RF: 0 ibuprofen 800 mg tablet 800 mg PO Q8H PRN (Reason: pain) Qty: 15 RF: 0 triamcinolone acetonide 0.1 % cream 1 applic topical BID Qty: 15 RF: 0 Discharge Orders: Discharge ED (Routine); Ordered 10/30/21 Ordered By: Randa Howard Referrals: Paradise Che, COLOR ROOM ATTENDANT [Primary Care Provider] - 1-3 days Discharge Diet: Advance as tolerated Discharge Activity: Resume usual activity Patient Instructions: Upper Respiratory Infection (ED) Coding Level of Care Code ED Drag Seiner for Vilma Herrera
[2021-10-30] MEDS: dexamethasone 10 mg/mL INJ IM (22:47)
[2021-10-30 23:10] VITALS: PULSE 94; RESP 20; O2SAT 96
[2021-10-30] MEDS: albuterol 8 gm MDI 2 PUFF INHALATION (23:10)
[2021-10-30 23:20] VITALS: PULSE 97; RESP 20; O2SAT 95
--- NOTE | 2021-10-30 23:24 | PC.NURSE ---
fluids discontinued as ordered on wrong patient per provider.
[2021-10-30 23:25] VITALS: BP 118/89; PULSE 80; RESP 24; TEMP 36.6; O2SAT 94
[2021-10-31 00:37] LABS: Adenovirus Not Detected (NOT DETECT); Chlamydia Pneumoniae Not Detected (NOT DETECT); Coronavirus 229E,HKU1,NL63,OC4 Not Detected (NOT DETECT); Human Metapneumovirus Not Detected (NOT DETECT); Human Rhinovirus/Enterovirus Detected (NOT DETECT); Influenza A Not Detected (NOT DETECT); Influenza A H1 Not Detected (NOT DETECT); Influenza A H1-2009 Not Detected (NOT DETECT); Influenza A H3 Not Detected (NOT DETECT); Influenza B Not Detected (NOT DETECT); Mycoplasma Pneumoniae Not Detected (NOT DETECT); Parainfluenza Virus Type 1 Not Detected (NOT DETECT); Parainfluenza Virus Type 2 Not Detected (NOT DETECT); Parainfluenza Virus Type 3 Not Detected (NOT DETECT); Parainfluenza Virus Type 4 Not Detected (NOT DETECT); Respiratory Syncytial Virus A Not Detected (NOT DETECT); Respiratory Syncytial Virus B Detected (NOT DETECT); SARS-COV-2 Not Detected (NOT DETECT)
[2021-10-31 00:46] LABS: Human Metapneumovirus Not Detected (NOT DETECT); Human Rhinovirus/Enterovirus Detected (NOT DETECT)
[2021-10-31 00:47] LABS: Results from Genmark
[2021-10-31 00:47] LABS: Respiratory Syncytial Virus A Not Detected (NOT DETECT); Respiratory Syncytial Virus B Detected (NOT DETECT); Results from Genmark
[2021-10-31 00:54] LABS: Results from Genmark
== END 2021-10-30 23:26 | disposition home or self-care (01) ==
PROVIDERS: Emergency Provider Emergency Medicine; PCP Nurse Practitioner Family
DX: J06.9 Acute upper respiratory infection, unspecified (principal); R05.9 Cough, unspecified; R06.2 Wheezing; R52 Pain, unspecified; E66.9 Obesity, unspecified; Z68.42 Body mass index [BMI] 45.0-49.9, adult
CPT/HCPCS: 71045; 87631; 87635; 87801; 94640; 96372; 99283; J1100; J3535

== ENCOUNTER 2021-12-14 13:58 | Emergency (ER) | payer MEDICAID, SELFPAY ==
[2021-12-14 14:24] VITALS: BP 135/101; PULSE 99; RESP 18; TEMP 37.2; O2SAT 97; BMI 45.4
--- NOTE | 2021-12-14 14:35 | XR_ITS ---
WS: [id number] LEFT KNEE: 3 VIEW(S) TECHNIQUE: AP, oblique(s) and lateral. HISTORY: fall COMPARISON: None available. No fracture or dislocation. No joint space narrowing or osteophytes. No joint effusion. No soft tissue abnormality. XR/XR knee LT 3V* [id number] IMPRESSION: Normal LEFT knee.
--- NOTE | 2021-12-14 14:42 | ED_ITS ---
HPI - Fall General: Chief Complaint: Fall Stated Complaint: Pain in R knee and whole leg Time Seen by Provider: 12/14/21 15:01 History of Present Illness: Patient twisted her left knee a few days ago and then did again yesterday. Complains of left knee pain. Associated symptoms-after fall: Denies abdominal pain, chest pain or headache(s) Review of Systems Const: Denies: fever(s), chills or body aches Eyes: Denies: eye discomfort ENMT: Denies: throat pain Card: Denies: chest pain Resp: Denies: dyspnea GI: Denies: abdominal pain Musc: Reports: extremity pain, joint pain (Patient said she hurt her left knee the other day and then hurt it again ye) and other (Yesterday, and said she twisted her left knee and it hurts to ambulate.) Skin/Breast: Denies: rash Neuro: Denies: headache(s) Psych: Denies: depression or suicidal ideation PFSH ED PFSH: Medical History Generalized anxiety disorder History of PCOS Intellectual delay Obesity Surgical History H/O esophagogastroduodenoscopy History of hysterectomy (~2019) Family History Denies family history of Anesthesia complication Bleeding disorder Social History Smoking and tobacco status: never smoked Second hand smoke exposure: No Alcohol intake: never Desire information about alcohol rehabilitation?: No Desire information about substance/drug rehabilitation?: No Adopted: No Caregiver/support person: Yes Lives independently: Yes Household members: spouse and friend(s) Housing: House Marital status: service: No Current occupational status: unemployed Current occupational exposures/hazards: No Pets and animals: No History of recent travel: No Sexually active: Yes Current gender identity: Female Salome/Presybeterian: Gnosticist Special saolme needs: No Agree to transfusion: No Financial difficulty paying for basics: Decline to Answer Physical Exam Const: COMMON NORMALS: no acute distress, patient oriented x3 and alert HENMT: COMMON NORMALS: normocephalic HEAD & SCALP: normocephalic Eye: COMMON NORMALS: EOMs intact bilaterally Neck/C-Spine: COMMON NORMALS: no JVD Resp: COMMON NORMALS: normal respiratory effort and No use of accessory muscles Cardio: COMMON NORMALS: no JVD GI: INSPECTION: Yes normal to inspection Extremity: NARRATIVE EXTREMITY EXAM: Tenderness to the left knee without swelling. Hurts with range of motion. No redness noted. Neuro: COMMON NORMALS: patient oriented x3 SENSORIUM/ORIENTATION: Yes alert Psych: COMMON NORMALS: mental status grossly normal Skin: COMMON NORMALS: no rashes or lesions noted GENERAL SKIN EXAM: no rashes or lesions noted Course Vital Signs: Vital signs: Vital Signs Temperature 99 F 12/14/21 14:24 Pulse Rate 99 12/14/21 14:24 Respiratory Rate 18 12/14/21 14:24 Blood Pressure 135/101 12/14/21 14:24 Pulse Oximetry 97 12/14/21 14:24 MDM - Fall Medical Decision Making Left knee strain. Radiology studies negative. Patient has no laxity in joint. Patient provided knee immobilizer, crutches and prescription. Patient encouraged follow-up primary care provider and also use ice in the meantime. Lab Data Radiology Impressions Knee X-Ray 12/14/21 14:35 IMPRESSION: Normal LEFT knee. Discharge Plan Discharge Patient Disposition: Home Clinical Impression: Muscle strain of left knee Acute knee pain Qualifiers: Laterality: left Qualified Code(s): M25.562 - Pain in left knee Condition: Stable Prescriptions: New Celebrex 100 mg capsule 100 mg PO BID Qty: 20 0RF Discontinued ibuprofen 800 mg tablet 800 mg PO Q8H PRN (Reason: pain) Qty: 30 0RF ibuprofen 800 mg tablet 800 mg PO Q8H PRN (Reason: pain) Qty: 15 0RF No Action albuterol sulfate 90 mcg/actuation HFA aerosol inhaler 2 inh INHALATION Q6H PRN (Reason: shortness of breath or wheezing) Qty: 8 0RF Tessalon Perles 100 mg capsule 100 mg PO Q6H PRN (Reason: cough) Qty: 20 0RF acetaminophen [Tylenol Extra Strength] 500 mg Tablet 1,000 mg PO PRN 0RF triamcinolone acetonide 0.1 % cream 1 applic topical BID Qty: 15 0RF Discharge Orders: Discharge ED (Routine); Ordered 12/14/21 Ordered By: Jasson Mckinney Referrals: Paradies Che, TUNNEL HEADING SUPERVISOR [Primary Care Provider] - Discharge Diet: Usual diet Discharge Activity: Increase activity as tolerated and Use walker/crutches as instructed Patient Instructions: Knee Pain (ED), Knee Immobilizer (ED) Activity Restrictions/Additional Instructions: Follow-up with medical provider as directed. Take medications as prescribed. Return to the ER or your medical provider if condition worsens. Please read and understand discharge instructions. If any questions ask please. Coding Level of Care Code ED Signal Worker Helper for Vilma Herrera
[2021-12-14 15:20] VITALS: BP 149/85; PULSE 98; RESP 20; O2SAT 97
--- NOTE | 2021-12-14 15:22 | PC.NURSE ---
REVIEWED DISCHARGE INSTRUCTIONS WITH PATIENT, PATIENT VERBALIZES UNDERSTANDING OF INSTRUCTIONS, MEDICATION AND SCRIPT FOR CRUTCHES, PATIENT TAKEN TO LOBBY VIA WHEELCHAIR
== END 2021-12-14 15:24 | disposition home or self-care (01) ==
PROVIDERS: Emergency Provider Nurse Practitioner Family; PCP Nurse Practitioner Family
DX: S86.912A Strain of unspecified muscle(s) and tendon(s) at lower leg level, left leg, initial encounter (principal); X50.1XXA Overexertion from prolonged static or awkward postures, initial encounter
CPT/HCPCS: 29530; 73562; 99283

== ENCOUNTER 2022-04-19 11:04 | Emergency (ER) | payer MEDICAID, SELFPAY ==
[2022-04-19] VITALS (8 sets, daily range): BP systolic 132–150; BP diastolic 92–117; PULSE 71–79; RESP 14–18; TEMP 36.7; O2SAT 95–99; BMI 43.8
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
[2022-04-19] MEDS: fentaNYL 50 mcg/mL INJ 2mL 25 MCG IVP (11:37)
[2022-04-19] MEDS: propofol 10 mg/mL SDV 20 mL 63.5 MG IVP (12:46)
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
[2022-04-19] MEDS: fentaNYL 50 mcg/mL INJ 2mL IVP (14:15)
--- NOTE | 2022-04-19 14:23 | PC.NURSE ---
1244- DR AT THE BEDSIDE REVIEWED PROCEDURE, RT AT THE BEDSIDE- APPLIED 2L OXYGEN 1246- DIPROVAN 63.[address] REDDY, PATIENT DRIFTING OFF - VSS 1248- REDUCTION COMPLETED 3039-4818- XRAYS BEING COMPLETED 1255- PATIENT IS AWAKE AND TALKING 1305- PROCEDURE COMPLETED AND PATIENT IS FULLY AWAKE PROCEDURE VS- 132/92 82 92% 140/85 83 94% 140/100 73 97% 135/100 70 96%
--- NOTE | 2022-04-19 16:27 | PC.NURSE ---
1527- PROCEDURE START, RT AT BEDSIDE 1530- DR REDDY PUSHED AND FLUSHED DIPROVAN 25MG 1531- CLOSED REDUCTION COMPLETED- PATIENT REQUIRED 25 MG DIPROVAN IVP BY DR REDDY 1533 ORTHOGLASS SPLINT APPLIED SECURED WITH KENIA BANDAGES 1535- PATIENT IS AWAKE 1538- XRAY COMPLETED 1550- SLING IN PLACE VS- 166/130 66 99% 155/105 65 99% 145/108 70 99% 149/104 73 99% 149/111 71 99%
--- NOTE | 2022-04-22 10:32 | DCPLANNER ---
Addendum entered by Rubi Henderson 06/13/22 10:48: Patient had a follow up appointment scheduled with ortho - patient did attend appointment. Addendum entered by Rubi Henderson 04/23/22 15:44: Patient has a follow up appointment scheduled for Tuesday, April 26, 2022 at 9:[address] Tervino at ortho. Clinic will call patient with appointment information. Original Note: manager call center had message to schedule a follow up appointment for patient with ortho. manager call center sent patients information to the front office staff at ortho. Patients information will be printed and reviewed. Clinic will call patient with appointment information.
== END 2022-04-19 16:17 | disposition home or self-care (01) ==
PROVIDERS: Emergency Provider Emergency Medicine; PCP Nurse Practitioner Family
DX: S53.025A Posterior dislocation of left radial head, initial encounter (principal); S52.122A Displaced fracture of head of left radius, initial encounter for closed fracture; V28.0XXA Motorcycle driver injured in noncollision transport accident in nontraffic accident, initial encounter
CPT/HCPCS: 24600; 73030; 73060; 73070; 73090; 73200; 96374; 96375; 96376; 99152; 99285; J2704; J3010

== ENCOUNTER 2022-04-25 18:14 | Emergency (ER) | payer MEDICAID, SELFPAY ==
[2022-04-25 18:26] VITALS: BP 172/113; PULSE 105; RESP 24; TEMP 37.1; O2SAT 94; BMI 43.8
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
--- NOTE | 2022-04-25 18:57 | XRR_ITS ---
PROCEDURE INFORMATION: Exam: XR Left Hand Exam date and time: 04/25/2022 8:21 PM Age: 37 years old Clinical indication: Pain; Hand; Left; Additional info: Numness, bruising, fall TECHNIQUE: Imaging protocol: Radiologic exam of the Left hand. Views: 3 or more views. COMPARISON: CR XR forearm LT 2V [id number] 04/19/2022 1:14 PM FINDINGS: Bones/joints: AP view demonstrates a possible 5th metacarpal proximal metadiaphyseal oblique nondisplaced fracture, please correlate clinically and consider short-term follow-up exam in 5-7 days for re-evaluation. Soft tissues: Soft tissue swelling about the hand. XR/XR hand LT 2V [id number] IMPRESSION: 1. AP view demonstrates a possible 5th metacarpal proximal metadiaphyseal oblique nondisplaced fracture, please correlate clinically and consider short-term follow-up exam in 5-7 days for re-evaluation. 2. Soft tissue swelling about the hand.
--- NOTE | 2022-04-25 18:57 | XRR_ITS ---
PROCEDURE INFORMATION: Exam: XR Left Elbow Exam date and time: 04/25/2022 8:24 PM Age: 37 years old Clinical indication: Pain; Elbow; Left; Additional info: Post fracture/dislocation, new numbness/motor deficits TECHNIQUE: Imaging protocol: Radiologic exam of the Left elbow. Views: 1 or 2 views. COMPARISON: CR XR elbow LT min 3V* [id number] 04/19/2022 3:43 PM FINDINGS: Bones/joints: Lateral view again demonstrates a radial head fracture involving the volar aspect of the radial head with some suspected interval bony healing compared to prior exam without complete bony healing. Soft tissues: Soft tissue swelling about the elbow. XR/XR elbow LT 2V [id number] IMPRESSION: 1. Lateral view again demonstrates a radial head fracture involving the volar aspect of the radial head with some suspected interval bony healing compared to prior exam without complete bony healing. 2. Soft tissue swelling about the elbow.
[2022-04-25 19:17] VITALS: RESP 18
[2022-04-25] MEDS: morphine 4 mg/mL SDV 1 mL IVP ×2 (19:17→21:06)
[2022-04-25 21:06] VITALS: RESP 18
[2022-04-25] MEDS: acetaminophen 500 mg Tablet 1000 MG PO (22:36)
[2022-04-25 22:37] VITALS: RESP 18
[2022-04-25] MEDS: oxyCODONE 5 mg IR Tab/Cap PO (22:37)
--- NOTE | 2022-04-25 23:24 | PC.NURSE ---
Ulnar/Gutter splint applied to left arm.
[2022-04-26] MEDS: HYDROmorphone 1 mg/mL INJ 1 mL 0.5 MG IVP (00:07)
[2022-04-26 00:18] VITALS: BP 139/89; PULSE 90; RESP 16; O2SAT 95
== END 2022-04-26 00:10 | disposition home or self-care (01) ==
PROVIDERS: Emergency Provider Emergency Medicine; PCP Nurse Practitioner Family
DX: M79.89 Other specified soft tissue disorders (principal); R20.0 Anesthesia of skin; M62.81 Muscle weakness (generalized); S52.122A Displaced fracture of head of left radius, initial encounter for closed fracture; V89.9XXA Person injured in unspecified vehicle accident, initial encounter
CPT/HCPCS: 73070; 73120; 96374; 96375; 96376; 99284; J1170; J2270

== ENCOUNTER → 2022-04-26 09:14 | Outpatient (BNVA) | payer MEDICAID, SELFPAY | PROVIDERS: PCP Nurse Practitioner Family; Referring Provider Emergency Medicine; Visit Provider Orthopaedic Surgery | DX: S52.122A Displaced fracture of head of left radius, initial encounter for closed fracture (principal); V29.9XXA Motorcycle rider (driver) (passenger) injured in unspecified traffic accident, initial encounter | CPT/HCPCS: 99203; 99204 ==

== ENCOUNTER 2022-04-29 10:17 | Day surgery (SDC) | payer MEDICAID, SELFPAY ==
[2022-04-26 17:28] VITALS: BMI 43.8
[2022-04-29] VITALS (27 sets, daily range): BP systolic 119–192; BP diastolic 58–165; PULSE 70–101; RESP 10–19; TEMP 36.1–36.9; O2SAT 92–100
--- NOTE | 2022-04-29 | SCC_ITS ---
Procedure done: Left elbow open reduction internal fixation annoyed tip fracture 41.5 seconds of fluoroscopic guidance, for a cumulative dose of 1.27 mGy, was provided to Dr. Trevino by the radiology department. C-arm images of the LEFT elbow were saved for the patient's permanent record. [facility]
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
[2022-04-29] MEDS: fentaNYL 50 mcg/mL INJ 2mL IVP (12:51)
--- NOTE | 2022-04-29 13:33 | W.PM.OPSUD ---
Surgery/Procedure H&P Update DATE OF PROCEDURE: April 29, 2022 DATE H&P PERFORMED: 04/26/22 H&P UPDATE INFORMATION: I have reviewed H&P completed within last 30 days PREOP DIAGNOSIS: Fracture/Dislocation left elbow PLANNED PROCEDURE: Operation Date: 04/29/22 12:50 Proposed Procedures p Open Treatment Left Elbow Dislocation and Radial head replacement:20216 S52.122A(Left) - Arnold Trevino MD s Radial head replacement:[id number](Left) - Arnold Trevino MD
[2022-04-29] MEDS: sodium chloride 0.9% 1,000 ML 30 ML IV (13:49)
[2022-04-29] MEDS: tobramycin 40 mg/mL SDV 2mL 160 MG IRRIGATION (14:40)
--- NOTE | 2022-04-29 15:45 | XR_ITS ---
WS: [id number] INTRAOPERATIVE TECHNIQUE: 7 Spot fluoroscopic images for intraoperative purposes. FLUOROSCOPY TIME: 41.5 seconds CLINICAL INFORMATION: OR PICS COMPARISON: None. FINDINGS: Radial head prosthesis. Normal anatomic alignment. XR/XR elbow LT 2V [id number] IMPRESSION: Images obtained for intraoperative purposes.
--- NOTE | 2022-04-29 16:07 | P.OP_ITS ---
Operative Report Date of procedure: April 29, 2022 Pre-op diagnosis: Preop Diagnosis Fracture/Dislocation left elbow Post-op diagnosis: Fracture coronoid tip and comminuted fracture radial head Procedure done: Left elbow open reduction internal fixation annoyed tip fracture Replacement radial head Implants: Rumsey Evolve Proline 6.5 mm, +2 mm neck and 22mm radial head Q fix anchor x1 Pathology: none sent Surgeon: Arnold Trevino Anesthesia: General Estimated blood loss (mL): 10 Tourniquet time (min): 75 Condition: stable Disposition: PACU Brief History: Ms. Mallory sustained a dislocation of her elbow and fracture of her radial hea with post reduction instability as evidenced by a loss of the close reduction in the emergency room. The patient is taken to the operating room today for ligamentous repair of the elbow and likely radial head replacement for a comminuted radial head fracture Procedure: Patient was taken to the operating room. She was given a general anesthesia. She was given 2 g of Ancef. A tourniquet was applied high on the left arm and the left arm prepped and draped in the usual fashion. A timeout was performed. 5 cm curved incision was made just anterior to the lateral epicondyle. Dissection was carried down identifying the extensor musculature. The extensor digitorum commonness/extensor carpi radialis interval was identified and dissection carried down through the interval to the capsule over the radial head. The lateral ligaments appeared to be and intact. The capsule was split anteriorly and laterally revealing the comminuted radial head fracture which appeared to be subluxed posteriorly. An oscillating saw was used to resect the comminuted radial head. On the back table it was sized to a 22mm prosthesis. The coronoid was inspected with a small avulsed portion of coronoid adherent to the anterior capsule. Initially a [employer] Q fix anchor was placed in the bed on the coronoid process. A free needle was used to pass the suture over the anterior coronoid fragment for later tightening and closure. Neck sequential broaching was accomplished of the canal up to 6.5 millimeters. A trial reduction with the +2 neck and 22 mm head improved stability and fluoroscopy verified congruent ulnohumeral articulation. The final neck and stem were then placed. The Q fix suture from the coracoid through the coronoid fragment was then secured with a knot pusher with visible improvement and stability. The lateral ligaments were probed and and and found to be in tact. With repair of the anterior radial head capsular deficit additional stability was obtained on the lateral side of the elbow. Intraoperative imaging was obtained showing a congruent elbow joint through range of motion. No instability was identified with varus or valgus stress. The muscular interval between the EDC and ECRL tendons was closed with 2-0 Vicryl. Subcutaneous tissues were closed with 2-0 Vicryl. Skin was closed with skin ashu. Xeroflo gauze 4 x 4's web roll a and a posterior splint with the elbow flexed at 90 degrees and the wrist in neutral rotation was applied. The patient was extubated and taken recovery in stable condition.
[2022-04-29] MEDS: labetalol 5 mg/mL SDV 20mL 10 MG IVP (16:30)
[2022-04-29] MEDS: hyDRALAzine 20 mg/mL INJ 1 mL 10 MG IVP ×2 (16:46→16:56)
[2022-04-29] MEDS: HYDROmorphone 1 mg/mL INJ 1 mL (16:54)
[2022-04-29] MEDS: HYDROmorphone 1 mg/mL INJ 1 mL 0.5 MG IVP (17:09)
[2022-04-29] MEDS: oxyCODONE 5 mg IR Tab/Cap PO (17:27)
[2022-04-29] MEDS: acetaminophen 1,000 MG/100 ML PIGGYBACK 400 MG IV (18:10)
[2022-04-29] MEDS: magnesium sulfate premix 2 GM/50 ML PIGGYBACK IV (18:32)
--- NOTE | 2022-04-29 19:30 | SUR.PHASEII ---
1930-patient was having trouble with blood pressure and pain control in recovery and in OPS. Additional IV medications were ordered by dr ames in OPS, and given by nurse. Patient's pain eased and blood pressure back to normal. O2 was discontinued and patient maintained good O2 level.
--- NOTE | 2022-04-29 19:30 | ANE.PACU2 ---
Inpatient post-anesthesia follow up: Airway intact: Yes Vital signs: Temperature 97.8 F Pulse Rate 98 Respiratory Rate 17 Blood Pressure 127/76 Pulse Oximetry 93 Oxygen Delivery Me thod Room Air Oxygen Flow Rate 0.5 Fraction of Inspir ed Oxygen Hydration adequate: Yes Nausea and vomiting: No Pain level: 6 Mental status: Baseline
== END 2022-04-29 19:33 | disposition home or self-care (01) ==
PROVIDERS: PCP Nurse Practitioner Family; Visit Provider Orthopaedic Surgery
PROC: (CPT 24666; principal; 2022-04-29 12:50)
PROC: (CPT 24666; 2022-04-29 12:50)
DX: S42.402A Unspecified fracture of lower end of left humerus, initial encounter for closed fracture (principal); V00.831A Fall from motorized mobility scooter, initial encounter; E66.01 Morbid (severe) obesity due to excess calories; Z68.41 Body mass index [BMI] 40.0-44.9, adult; F41.9 Anxiety disorder, unspecified; E28.2 Polycystic ovarian syndrome
CPT/HCPCS: 24666; 73070; 76000; C1713; C1776; J0360; J1100; J1170; J2250; J2370; J2405; J2704; J3010; J3260; J3475; J3490; J7030

== ENCOUNTER 2022-04-30 08:01 | Emergency (ER) | payer MEDICAID, SELFPAY ==
[2022-04-30 08:09] VITALS: BP 137/85; PULSE 96; RESP 18; TEMP 36.9; O2SAT 95; BMI 43.8
--- NOTE | 2022-04-30 08:33 | ED_ITS ---
HPI - Extremity Problem General: Chief complaint: Extremity Injury, Upper Stated complaint: postsurgery; fingers discolor Time Seen by Provider: 04/30/22 08:05 History of Present Illness: Patient is a 37-year-old female comes to the ED with post surgery concerns. Patient had a displaced fracture of head of left radius that required surgery which was done by Dr. Trevino yesterday April 29. Today she states that her fingers felt a little cold and that she has some orange coloring of the distal tip of her fingers. She also endorses having swelling in the left hand. Denies any other concerns. She has an appointment with Dr. Trevino for post surgery follow-up on May 03. Associated symptoms: Deny chest pain, fever(s) or rash Review of Systems Const: Denies: fever(s), chills or fatigue Eyes: Denies: change in vision or eye discomfort ENMT: Denies: throat pain, odynophagia, nasal discharge or nasal congestion Card: Denies: chest pain, palpitations, edema, swelling of feet/ankles, dyspnea on exertion or orthopnea Resp: Denies: dyspnea, productive cough or non-productive cough GI: Denies: abdominal pain, nausea, vomiting, diarrhea, constipation or hematochezia : Denies: flank pain, dysuria or hematuria Musc: Reports: extremity swelling (left hand); Denies: neck pain or back pain Skin/Breast: Denies: rash or new lesions Neuro: Denies: headache(s), numbness in extremities or weakness in extremities PFSH ED PFSH: Medical History Generalized anxiety disorder History of PCOS Intellectual delay Obesity Surgical History H/O esophagogastroduodenoscopy History of hysterectomy (~2019) Family History Denies family history of Anesthesia complication Bleeding disorder Social History Smoking and tobacco status: never smoked Second hand smoke exposure: No Alcohol intake: never Desire information about alcohol rehabilitation?: No Desire information about substance/drug rehabilitation?: No Adopted: No Caregiver/support person: Yes Lives independently: Yes Household members: spouse and friend(s) Housing: House Marital status: service: No Current occupational status: unemployed Current occupational exposures/hazards: No Pets and animals: No History of recent travel: No Sexually active: Yes Current gender identity: Female Salome/Buddhism: Hoahaoism Special salome needs: No Agree to transfusion: No Financial difficulty paying for basics: Decline to Answer Physical Exam Const: COMMON NORMALS: no acute distress, patient oriented x3 and alert GENERAL APPEARANCE: cooperative and comfortable HENMT: COMMON NORMALS: normocephalic HEAD & SCALP: normocephalic MOUTH: Normal oral and palatal mucosa present THROAT: posterior oropharynx normal and uvula midline Neck/C-Spine: COMMON NORMALS: supple GENERAL: Yes normal visual inspection Resp: COMMON NORMALS: normal respiratory effort, No retractions, No use of accessory muscles and clear to auscultation bilaterally AUSCULTATION: clear to auscultation bilaterally Cardio: COMMON NORMALS: regular rate, regular rhythm, S1 normal heart sound present, S2 normal heart sound present, No gallops present (Cardio), No clicks present (Cardio), No murmurs present (Cardio) and Peripheral pulses 2+ throughout RATE: regular rate RHYTHM: regular rhythm HEART SOUNDS: S1 normal heart sound present and S2 normal heart sound present PERIPHERAL PULSES: Peripheral pulses 2+ throughout GI: COMMON NORMALS: Normal to inspection, nondistended, normoactive bowel s ounds present, Soft to palpation, non-tender and no masses PALPATION: Yes Soft to palpation : COMMON NORMALS: Yes no CVA tenderness BLADDER/KIDNEY EXAM: Yes no CVA tenderness Back/Pelvis: COMMON NORMALS: no CVA tenderness Extremity: NARRATIVE EXTREMITY EXAM: Patient's left arm is in a long arm splint with elbow flexed at 90 degree angle. Left hand has some swelling noted. Fingers are warm to the touch. Normal color and no signs of decreased blood flow to fingers. Cap Refill less than 3 seconds. Vigo tinted skin at distal tip of fingers which is likely due to pre/post op antiseptic solution and does not appear pathological. Neurovascular intact. Neuro: COMMON NORMALS: patient oriented x3 and moves all extremities SENSORIUM/ORIENTATION: Yes alert Skin: GENERAL SKIN EXAM: dry skin Course Vital Signs: Vital signs: Vital Signs Temperature 98.5 F 04/30/22 08:09 Pulse Rate 96 04/30/22 08:09 Respiratory Rate 18 04/30/22 08:09 Blood Pressure 137/85 04/30/22 08:09 Pulse Oximetry 95 04/30/22 08:09 MDM - Extremity (Nontraumatic) Medical Decision Making Patient is a 37-year-old female comes to the ED with post surgery concerns. Patient had a displaced fracture of head of left radius that required surgery which was done by Dr. Trevino yesterday April 29. Today she states that her fingers felt a little cold and that she has some orange coloring of the distal tip of her fingers. She also endorses having swelling in the left hand. Denies any other concerns. Patient's left arm is in a long arm splint with elbow flexed at 90 degree angle. Left hand has some swelling noted. Fingers are warm to the touch. Normal color and no signs of decreased blood flow to fingers. Cap Refill less than 3 seconds. Vigo tinted skin at distal tip of fingers which is likely due to pre/post op antiseptic solution and does not appear pathological. Neurovascular intact. Patient's left arm has normal 1 day postop appearance. She said her shoulder sling was uncomfortable and the strap keeps loosening. I had nurse put patient in a shoulder immobilizer to see if it is more supportive and comfortable for her. She was stable for discharge home and told to follow-up with Dr. Trevino at her scheduled appointment this coming May 03. Patient understood and agreed with plan. Discharge Plan Discharge Patient Disposition: Home Clinical Impression: Encounter for postoperative care Condition: Stable Prescriptions: No Action oxycodone 5 mg tablet 5 mg PO Q4H PRN (Reason: pain) Qty: 40 0RF Discharge Orders: Discharge ED (Routine); Ordered 04/30/22 Ordered By: Johnnie Cornelius Referrals: Paradise Che [facility] [employer] OPERATOR [Primary Care Provider] - Discharge Diet: Regular Discharge Activity: Increase activity as tolerated Activity Restrictions/Additional Instructions: Follow-up with Dr. Trevino at your scheduled appointment this coming May 03. Continue taking all previously prescribed medications. Return to the ER or your medical provider if condition worsens. Please read and understand discharge instructions. Thank you for choosing [facility] for your healthcare needs today. Please realize this is an emergency room and that we are providing you with a medical screening exam and this may not be complete and all inclusive of all the testing and or work up that you may need to determine your ailment or severity of your illness. It is very important that you follow up as instructed or that you return to the Emergency Department should you have concerns or if your condition changes or worsens in any way. Coding Level of Care Code ED Sustainability Specialist for Vilma Fwd Exam Comprehensive
--- NOTE | 2022-04-30 08:44 | PC.NURSE ---
LOOSENED SPLINT WRAP. ADDED ONE 4 INCH WRAP TO PT SPLINT.
--- NOTE | 2022-04-30 08:44 | PC.NURSE ---
PT REPORTS THAT HER PAIN AND FEELING ARE IMPROVING.
== END 2022-04-30 09:37 | disposition home or self-care (01) ==
PROVIDERS: Emergency Provider Physician Assistant; PCP Nurse Practitioner Family
DX: Z48.89 Encounter for other specified surgical aftercare (principal)
CPT/HCPCS: 99282

== ENCOUNTER → 2022-05-03 09:24 | Outpatient (BNVA) | payer MEDICAID, SELFPAY | PROVIDERS: PCP Nurse Practitioner Family; Visit Provider Nurse Practitioner Family | DX: Z48.89 Encounter for other specified surgical aftercare (principal) | CPT/HCPCS: 99024 ==

== ENCOUNTER 2022-05-07 17:30 | Emergency (ER) | payer MEDICAID, SELFPAY ==
[2022-05-07 18:13] VITALS: BP 144/90; PULSE 77; RESP 12; TEMP 37; O2SAT 96; BMI 45.4
--- NOTE | 2022-05-07 18:41 | ED_ITS ---
HPI - Wound/Laceration General: Chief Complaint: Wound/Laceration Stated Complaint: kori bleeding. Time Seen by Provider: 05/07/22 18:40 History of Present Illness: 37-year-old female comes in today for complaints of drainage from her surgical wound site. Patient had bumped the surgical wound to her left elbow and then noticed some blood on her dressing. Patient appears nontoxic. Patient denies any fever. Patient appears in mild pain. Review of Systems General: Reports: 10 or more systems reviewed and unremarkable except in HPI and below Musc: Reports: extremity pain Skin/Breast: Reports: new lesions (Healing wound) PFS ED PFSH: Medical History Generalized anxiety disorder History of PCOS Intellectual delay Obesity Surgical History H/O esophagogastroduodenoscopy History of hysterectomy (~2019) Family History Denies family history of Anesthesia complication Bleeding disorder Social History Smoking and tobacco status: never smoked Second hand smoke exposure: No Alcohol intake: never Desire information about alcohol rehabilitation?: No Desire information about substance/drug rehabilitation?: No Adopted: No Caregiver/support person: Yes Lives independently: Yes Household members: spouse and friend(s) Housing: House Marital status: service: No Current occupational status: unemployed Current occupational exposures/hazards: No Pets and animals: No History of recent travel: No Sexually active: Yes Current gender identity: Female Salome/Anglican: Church Special salome needs: No Agree to transfusion: No Financial difficulty paying for basics: Decline to Answer Physical Exam Const: COMMON NORMALS: alert HENMT: COMMON NORMALS: normocephalic HEAD & SCALP: normocephalic Neck/C-Spine: COMMON NORMALS: full ROM Resp: COMMON NORMALS: normal respiratory effort Cardio: COMMON NORMALS: regular rate RATE: regular rate Extremity: LEFT UPPER EXTREMITY: Yes elbow joint (12 cm surgical incision well approximated with kori) Neuro: SENSORIUM/ORIENTATION: Yes alert Skin: NARRATIVE SKIN EXAM: Healing surgical wound. Dressing showed a dime sized area of blood which concerned patient. Course Vital Signs: Vital signs: Vital Signs Temperature 98.6 F 05/07/22 18:13 Pulse Rate 77 05/07/22 18:13 Respiratory Rate 12 05/07/22 18:13 Blood Pressure 144/90 05/07/22 18:13 Pulse Oximetry 96 05/07/22 18:13 MDM - Wound/Laceration Medical Decision Making 37-year-old female came in today for concerns of bumping her recent surgical incision on her left elbow. Patient had surgery done on the . On exam patient has a well-healing appearing surgical incision approximated with kori. No dye occasion is noted. Kori remain intact. Examination of the dressing noted a dime size area of dried blood on it. Differential diagnosis includes surgical wound infection, hematoma, worried well. Suspect there is a small hematoma along the surgical site but it is very insignificant. The wound appears to be healing well without any significant redness or fever. Minuscule amount of blood was noted on the pad. Reassured patient and her caregiver regarding to the amount of blood and recommendations for follow-up. No signs of significant illness or injury is noted at this time. Discharge Plan Discharge Patient Disposition: Home Clinical Impression: Surgical wound present, Hematoma Condition: Stable Prescriptions: No Action oxycodone 5 mg tablet 5 mg PO Q4H PRN (Reason: pain) Qty: 40 0RF Discharge Orders: Discharge ED (Routine); Ordered 05/07/22 Ordered By: Tushar Jose Referrals: Paradise Che, [facility] [Primary Care Provider] - Discharge Diet: Usual diet Discharge Activity: Increase activity as tolerated Patient Instructions: Opioid Safety Activity Restrictions/Additional Instructions: continue with routine care, follow-up with surgeon for further care Coding Level of Care Code ED Superintendent [employer] for Vilma Herrera
== END 2022-05-07 19:04 | disposition home or self-care (01) ==
PROVIDERS: Emergency Provider Nurse Practitioner Family; PCP Nurse Practitioner Family
DX: L76.32 Postprocedural hematoma of skin and subcutaneous tissue following other procedure (principal)
CPT/HCPCS: 99283

== ENCOUNTER → 2022-05-15 09:44 | Outpatient (BNVA) | payer MEDICAID, SELFPAY | PROVIDERS: PCP Nurse Practitioner Family; Visit Provider Nurse Practitioner Family | DX: Z48.89 Encounter for other specified surgical aftercare (principal); S42.402A Unspecified fracture of lower end of left humerus, initial encounter for closed fracture; X58.XXXA Exposure to other specified factors, initial encounter | CPT/HCPCS: 73080; 99024 ==

== ENCOUNTER 2022-05-15 14:30 | Outpatient (CLI) | payer MEDICAID, SELFPAY | END 2022-05-15 14:31 | disposition home or self-care (01) | LOC: SPT 14:31 | PROVIDERS: PCP Nurse Practitioner Family; Visit Provider Nurse Practitioner Family | DX: Z47.89 Encounter for other orthopedic aftercare (principal) | CPT/HCPCS: 97760; L3761 ==

== ENCOUNTER → 2022-06-12 12:56 | Outpatient (BNVA) | payer MEDICAID, SELFPAY | PROVIDERS: PCP Nurse Practitioner Family; Visit Provider Orthopaedic Surgery | DX: Z48.89 Encounter for other specified surgical aftercare (principal); Z96.622 Presence of left artificial elbow joint; G56.32 Lesion of radial nerve, left upper limb | CPT/HCPCS: 73080; 99024 ==

== ENCOUNTER 2022-06-12 14:37 | Outpatient (CLI) | payer MEDICAID, SELFPAY | END 2022-06-12 14:38 | disposition home or self-care (01) | LOC: SPT 14:38 | PROVIDERS: PCP Nurse Practitioner Family; Visit Provider Orthopaedic Surgery | DX: Z47.89 Encounter for other orthopedic aftercare (principal) | CPT/HCPCS: 97760; L3908 ==

== ENCOUNTER 2022-07-18 15:28 | Outpatient (CLI) | payer MEDICAID, SELFPAY ==
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
== END 2022-07-18 15:29 | disposition home or self-care (01) ==
PROVIDERS: PCP Nurse Practitioner Family; Visit Provider Nurse Practitioner Family
DX: R51.9 Headache, unspecified (principal)
CPT/HCPCS: 70551

== ENCOUNTER 2022-08-09 13:59 | Outpatient (CLI) | payer MEDICAID, SELFPAY ==
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
== END 2022-08-09 14:00 | disposition home or self-care (01) ==
LOC: RAD 13:59
PROVIDERS: PCP Nurse Practitioner Family; Visit Provider Nurse Practitioner Family
DX: N63.25 Unspecified lump in the left breast, overlapping quadrants (principal)
CPT/HCPCS: 76642; 77062

== ENCOUNTER 2022-10-05 17:38 | Emergency (ER) | payer MEDICAID, SELFPAY ==
[2022-10-05 17:44] VITALS: PULSE 100; RESP 26; O2SAT 96; BMI 45.4
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
[2022-10-05 18:07] VITALS: BP 162/116; PULSE 100; RESP 25; O2SAT 95
[2022-10-05] MEDS: iohexol 350 mg/mL 500 mL Btl (per mL) IV (18:22)
[2022-10-05] MEDS: HYDROmorphone 1 mg/mL INJ 1 mL IVP ×2 (18:29→20:12)
[2022-10-05 18:45] VITALS: PULSE 107; O2SAT 92
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
[2022-10-05 19:17] VITALS: BP 128/108; PULSE 105; RESP 18; O2SAT 92
[2022-10-05 19:18] LABS: Basophils # 0.1 10^3/uL (0.0-0.1); Basophils % 0.6 %; Eosinophils # 0.2 10^3/uL (0.0-0.8); Hematocrit 44.2 % (37.0-47.0); Hemoglobin 14.7 g/dL (11.5-15.3); Lymphocytes % 15.1 %; Mean Corpuscular HGB Conc 33.3 g/dL (30.0-36.0); Mean Corpuscular Hemoglobin 30.9 pg (28.0-34.0); Mean Corpuscular Volume 93.1 fl (81-99); Mean Platelet Volume 9.2 fL (7.4-10.4); Monocytes % 4.8 %; Neutrophils # 15.02 10^3/uL (1.8-7.7); Nucleated Red Blood Cells % 0 %; Platelet Count 378 10^3/cmm (130-400); Red Blood Count 4.75 10^6/uL (4.1-5.3); Red Cell Distribution Width 12.6 % (12.1-15.1); White Blood Count 19.8 10^3/uL (4.0-10.0)
[2022-10-05 19:37] LABS: Alanine Aminotransferase 21 U/L (0-33); Albumin Level 3.7 g/dL (3.5-5.2); Alkaline Phosphatase 93 U/L (35-105); Aspartate Amino Transferase 24 U/L (0-32); Blood Urea Nitrogen 6 mg/dL (6-20); Calcium 9.1 mg/dL (8.5-10.5); Carbon Dioxide 23 mmol/L (22-29); Chloride 99 mmol/L (98-107); Globulin 3.7 g/dL (1.3-4.6); Glomerular Filtration Rate 179.6 mL/min (90-130); Glucose 116 mg/dL (65-115); Osmolality Calculated 273 mOsm/kg (285-295); Sodium 132 mmol/L (136-145); Total Bilirubin 0.2 mg/dL (0.15-1.2); Total Protein 7.4 g/dL (6.6-8.7)
[2022-10-05 19:42] LABS: Anion Gap 13.7 (5-19); Potassium 3.7 mmol/L (3.5-5.1)
[2022-10-05 20:13] VITALS: BP 147/103; PULSE 113; RESP 16; O2SAT 87
--- NOTE | 2022-10-05 20:15 | PC.NURSE ---
pt o2 sat dropped to 85 after pain medication, applied 2L O2 NC
== END 2022-10-05 20:28 | disposition short-term general hospital (02) ==
PROVIDERS: Emergency Provider Emergency Medicine; PCP Nurse Practitioner Family
DX: S22.080A Wedge compression fracture of T11-T12 vertebra, initial encounter for closed fracture (principal); V89.2XXA Person injured in unspecified motor-vehicle accident, traffic, initial encounter
CPT/HCPCS: 36415; 70450; 71250; 72125; 74176; 80053; 85025; 96374; 96376; 99285; J1170; Q9967

== ENCOUNTER → 2022-12-11 10:23 | Outpatient (BNVA) | payer MEDICAID, SELFPAY | PROVIDERS: PCP Nurse Practitioner Family; Visit Provider Thoracic Surgery (Cardiothoracic Vascular Surgery) | DX: Z04.89 Encounter for examination and observation for other specified reasons (principal) | CPT/HCPCS: 99203; A6219 ==

== ENCOUNTER → 2025-06-16 09:48 | Outpatient (BNVA) | payer MEDICAID, SELFPAY | PROVIDERS: PCP Nurse Practitioner Family; Visit Provider Dermatology | DX: L85.3 Xerosis cutis (principal); L55.9 Sunburn, unspecified; D22.5 Melanocytic nevi of trunk; L81.4 Other melanin hyperpigmentation; D48.5 Neoplasm of uncertain behavior of skin | CPT/HCPCS: 11102; 99203 ==

== ENCOUNTER 2025-09-26 22:32 | Emergency (ER) | payer MEDICAID, SELFPAY ==
[2025-09-26 22:33] VITALS: BP 128/104; PULSE 103; RESP 20; TEMP 36.6; O2SAT 95; BMI 41.1
--- NOTE | 2025-09-26 23:13 | CTR_ITS ---
PROCEDURE INFORMATION: Exam: CT Abdomen And Pelvis With Contrast Exam date and time: 09/27/2025 12:43 AM Age: 40 years old Clinical indication: Abdominal pain; Epigastric; Prior surgery; Surgery date: <1 month; Surgery type: Gastric bypass sep 05 2025; Additional info: Recent bypass, nv, epigastric pain TECHNIQUE: Imaging protocol: Computed tomography of the abdomen and pelvis with contrast. Radiation optimization: All CT scans at this facility use at least one of these dose optimization techniques: automated exposure control; mA and/or kV adjustment per patient size (includes targeted exams where dose is matched to clinical indication); or iterative reconstruction. Contrast material: OMNI 350; Contrast volume: 100 ml; Contrast route: INTRAVENOUS (IV); Other contrast: Oral, omni 350 , 20ml; COMPARISON: CT abdomen pelvis w con* [id number] 09/17/2020 7:50 PM RADIATION DOSE METRICS: Total DLP (mGy-cm): 1199.63 FINDINGS: Liver: Normal. No mass. Gallbladder and biliary ducts: Normal. No calcified stones. No ductal dilation. Pancreas: Normal. No ductal dilation. Spleen: Normal. No splenomegaly. Adrenal glands: Normal. No mass. Kidneys and ureters: Normal. No hydronephrosis. Stomach and bowel: Amanda-en-Y gastric bypass. No obstruction of the jejunojejunostomy. Appendix: No evidence of appendicitis. Intraperitoneal space: Unremarkable. No free air. No significant fluid collection. Vasculature: Unremarkable. No abdominal aortic aneurysm. Lymph nodes: Unremarkable. No enlarged lymph nodes. Urinary bladder: Decompressed urinary bladder, which limits evaluation. Wall thickening is concerning for UTI, recommend urinalysis. Reproductive: Hysterectomy. Bones/joints: Posterior thoracolumbar fusion hardware at T10-L2. Underlying compression deformity at T12 with retropulsion contributing to moderate spinal canal stenosis. Soft tissues: Unremarkable. CT/CT abdomen pelvis w con* [id number] IMPRESSION: 1. Amanda-en-Y gastric bypass. No obstruction of the jejunojejunostomy. No small bowel obstruction. 2. Decompressed urinary bladder, which limits evaluation. Wall thickening is concerning for UTI, recommend urinalysis. 3. Hysterectomy. 4. Posterior thoracolumbar fusion hardware at T10-L2. Underlying compression deformity at T12 with retropulsion contributing to moderate spinal canal stenosis.
[2025-09-26] MEDS: metoclopramide 5 mg/mL SDV 2 mL 10 MG IVP (23:46)
[2025-09-26] MEDS: morphine 4 mg/mL SDV 1 mL IVP (23:46)
--- NOTE | 2025-09-26 23:53 | W.ED.ABDPA2 ---
HPI - Abdominal Pain General: Chief Complaint: Abdominal Pain Stated Complaint: N/V Time Seen by Provider: 09/26/25 22:35 History of Present Illness: Patient is a 40-year-old female presents with a 5-hour history of abdominal pain, localized to her upper abdomen and and worsening when sitting up, now involving the lower abdomen and a few episodes of nausea vomiting. The patient reports having undergone a recent bypass surgery a couple of weeks ago in [place], [place], performed laparoscopically. Since the procedure, the patient has been recovering and tolerating meals well until the onset of current symptoms. The patient has access to Zofran at home for nausea, which is usually effective. Denies fever, urinary symptoms, and reports a bowel movement today. No history of other abdominal surgeries or significant back pain. She is due to have her first follow-up with her original surgeon tomorrow. Related Data Previous Rx's ?Medication ?Instructions ?Recorded oxycodone 5 mg tablet 5 mg PO Q4H PRN pain #40 tabs 04/29/22 Locking elbow brace - left #1 ea 05/15/22 cock up splint #1 ea 06/12/22 cephalexin 500 mg capsule 500 mg PO BID #10 caps 09/27/25 metoclopramide HCl 10 mg tablet 10 mg PO Q8H #14 tabs 09/27/25 (Reglan) Allergies Allergy/AdvReac Type Severity Reaction Status Date / Time No Known Allergies Allergy Verified 06/12/22 12:53 Review of Systems General: Reports: 10 or more systems reviewed and unremarkable except in HPI and below PFSH ED PFSH: Medical History (Updated 09/27/25 @ 01:35 by Solomon Landaverde DO) Intellectual delay Generalized anxiety disorder Obesity History of PCOS Surgical History (Updated 09/27/25 @ 01:35 by Solomon Landaverde DO) H/O esophagogastroduodenoscopy History of hysterectomy (~2019) Family History Denies family history of Anesthesia complication Bleeding disorder Social History Smoking and tobacco/nicotine status: never used tobacco/nicotine Second hand smoke exposure: No Alcohol intake: never Substance/Drug Use: never Adopted: No Caregiver/support person: Yes Lives independently: Yes Household members: spouse and friend(s) Housing: House Marital status: service: No Current occupational status: unemployed Current occupational exposures/hazards: No Pets and animals: No Sexually active: Yes Do you think of yourself as: Straight/Heterosexual Current gender identity: Female Salome/Confucianist: Moravian Special salome needs: No Agree to transfusion: No Physical Exam Narrative: EXAM NARRATIVE: Well-appearing, nontoxic, slightly tachycardic but afebrile, normotensive, no acute distress. Abdomen mildly distended with mild generalized tenderness throughout, not peritonitic, negative McBurney and Silva sign, bowel sounds decreased but present, well-healing previous laparoscopy scars, no CVA tenderness. Normal sinus rhythm with slight sinus tachycardia, slightly delayed cap refill, 2+ pulses throughout, dry tacky membranes. Breathing comfortably on room air, saturating well, GCS 15. Course Vital Signs: Vital signs: Vital Signs Temperature 97.8 F 09/26/25 22:33 Pulse Rate 103 H 09/26/25 22:33 Respiratory Rate 20 H 09/26/25 22:33 Blood Pressure 128/104 09/26/25 22:33 Pulse Oximetry 95 09/26/25 22:33 Oxygen Delivery Me thod Room Air 09/26/25 22:33 MDM - Abdominal Pain Medical Decision Making -ddx: Postsurgical complication, dumping syndrome, dehydration, electrolyte abnormality, pancreatitis, cholecystitis, ileus, dehydration, electrolyte abnormality, enteritis, GERD - Patient overall well-appearing, mildly tachycardic, appears dehydrated, with abrupt onset of upper abdominal pain that has become localized earlier this evening, had previously been recovering well since her surgery, has not had follow-up with her surgeon yet. Has not been having fevers, was previously tolerating p.o., will evaluate with abdominal labs, CT scan with IV and p.o. contrast due to recent bypass, administer fluids, nausea and pain medication and reassess. - CT scan with no concerns of acute postsurgical pathology, no abscess or seroma formation, no perforation, no evidence of anastomotic leak. No SBO, perforation, evidence of kidney stones or pyelonephritis. She had signs of bladder wall thickening on CT, UA moderately suggestive of a UTI and so this was counted as a cystitis and she was started on Rocephin for this, also given mild potassium repletion. She felt much improved after the above medications, was able to tolerate p.o. because and overall reassuring ED evaluation, vital signs normalized and already has follow-up with her original surgeon tomorrow, she was able to be discharged with a prescription for Keflex for 5 days to treat a UTI, antiemetics, supportive care, discharged with strict return precautions given. Lab Data 09/26/25 23:44 09/26/25 23:44 Labs/Radiology: Radiology Impressions Abdomen/Pelvis CT 09/26/25 23:13 IMPRESSION: 1. Amanda-en-Y gastric bypass. No obstruction of the jejunojejunostomy. No small bowel obstruction. 2. Decompressed urinary bladder, which limits evaluation. Wall thickening is concerning for UTI, recommend urinalysis. 3. Hysterectomy. 4. Posterior thoracolumbar fusion hardware at T10-L2. Underlying compression deformity at T12 with retropulsion contributing to moderate spinal canal stenosis. Laboratory Results WBC 8.39 10^3/uL (3.29-11.43) 09/26/25 23:44 RBC 4.80 10^6/uL (3.85-5.65) 09/26/25 23:44 Hgb 14.70 g/dL (11.27-16.99) 09/26/25 23:44 Hct 42.7 % (36-47) 09/26/25 23:44 MCV 89.0 fl (85-98) 09/26/25 23:44 MCH 30.6 pg (27-33) 09/26/25 23:44 MCHC 34.4 g/dL (30-55) 09/26/25 23:44 RDW 14.0 % (12.1-15.1) 09/26/25 23:44 Plt Count 306 10^3/cmm (157-399) 09/26/25 23:44 MPV 9.8 fL (7.4-10.4) 09/26/25 23:44 Neut % (Auto) 54.9 % 09/26/25 23:44 Lymph % (Auto) 32.5 % 09/26/25 23:44 [place]ountain % (Auto) 7.9 % 09/26/25 23:44 Eos % (Auto) 3.8 % 09/26/25 23:44 Baso % (Auto) 0.7 % 09/26/25 23:44 Neut # (Auto) 4.60 10^3/uL (1.8-7.7) 09/26/25 23:44 Lymph # (Auto) 2.7 10^3/uL (0.8-4.8) 09/26/25 23:44 Fountain # (Auto) 0.7 10^3/uL (0.2-0.9) 09/26/25 23:44 Eos # (Auto) 0.3 10^3/uL (0.0-0.8) 09/26/25 23:44 Baso # (Auto) 0.1 10^3/uL (0.0-0.1) 09/26/25 23:44 Nucleated RBC % (auto) 0 % 09/26/25 23:44 Nucleated RBCs # 0.0 /100WBC 09/26/25 23:44 ESR 14 mm/hr (0-15) 09/26/25 23:44 Sodium 144 mmol/L (136-145) 09/26/25 23:44 Potassium 3.3 mmol/L (3.5-5.1) L 09/26/25 23:44 Chloride 105 mmol/L (98-107) 09/26/25 23:44 Carbon Dioxide 23 mmol/L (22-29) 09/26/25 23:44 Anion Gap 19.3 (5-19) H 09/26/25 23:44 BUN 8 mg/dL (6-20) 09/26/25 23:44 Creatinine 0.5 mg/dL (0.5-0.9) 09/26/25 23:44 GFR Calculation 136.6 mL/min (90-130) H 09/26/25 23:44 Glucose 92 mg/dL (65-115) 09/26/25 23:44 Calculated Osmolality 296 mOsm/kg (285-295) H 09/26/25 23:44 Lactic Acid 0.8 mmol/L (0.5-2.2) 09/26/25 23:44 Calcium 9.3 mg/dL (8.5-10.5) 09/26/25 23:44 Phosphorus 2.8 mg/dL (2.5-4.5) 09/26/25 23:44 Magnesium 2.1 mg/dL (1.7-2.3) 09/26/25 23:44 Total Bilirubin 0.4 mg/dL (0.15-1.2) 09/26/25 23:44 AST 33 U/L (0-32) H 09/26/25 23:44 ALT 45 U/L (0-33) H 09/26/25 23:44 Alkaline Phosphatase 86 U/L (35-105) 09/26/25 23:44 C-Reactive Protein 19.7 mg/L (0.0-4.9) H 09/26/25 23:44 Total Protein 7.2 g/dL (6.6-8.7) 09/26/25 23:44 Albumin 4.1 g/dL (3.5-5.2) 09/26/25 23:44 Globulin 3.1 g/dL (1.3-4.6) 09/26/25 23:44 Lipase 12 U/L (13-60) L 09/26/25 23:44 Procalcitonin 0.02 ng/mL (0-0.5) 09/26/25 23:44 HCG, Qual Negative (Negative) 09/27/25 00:58 Urine Color Dark yellow (Yellow) A 09/27/25 00:58 Urine Appearance Cloudy (CLEAR) A 09/27/25 00:58 Urine pH 6.0 (5-7) 09/27/25 00:58 Ur Specific [place] 1.032 (1.005-1.030) H 09/27/25 00:58 Urine Protein 1+ (Negative) A 09/27/25 00:58 Urine Glucose (UA) Negative (Normal) 09/27/25 00:58 Urine Ketones 4+ (Negative) 09/27/25 00:58 Urine Blood 1+ (Negative) A 09/27/25 00:58 Urine Nitrate Positive (Negative) A 09/27/25 00:58 Urine Bilirubin Negative (Negative) 09/27/25 00:58 Urine Urobilinogen 1.0 mg/dL (Negative) 09/27/25 00:58 Ur Leukocyte Esterase Trace (Negative) A 09/27/25 00:58 Urine RBC 11-20 /hpf (0-2) H 09/27/25 00:58 Urine WBC 11-20 /hpf (0-5) H 09/27/25 00:58 Ur Squamous Epith Cells 6-10 /hpf (0-5) 09/27/25 00:58 Amorphous Sediment Not Reportable 09/27/25 00:58 Urine Bacteria 3+ /hpf (NONE) H 09/27/25 00:58 Hyaline Casts 1.65 /lpf 09/27/25 00:58 All radiology interpretation(s) finalized by discharge Discharge Plan Discharge Patient Disposition: Home Clinical Impression: UTI (urinary tract infection), S/P gastric bypass, Nausea & vomiting Condition: Stable Prescriptions: New cephalexin 500 mg capsule 500 mg PO BID Qty: 10 0RF metoclopramide HCl [Reglan] 10 mg tablet 10 mg PO Q8H Qty: 14 0RF No Action (DME) Locking elbow brace - left See Rx Instructions .Route .MEDSUPPLY Qty: 1 0RF Rx Instructions: As directed (DME) cock up splint See Rx Instructions .Route .MEDSUPPLY Qty: 1 0RF Rx Instructions: As directed oxycodone 5 mg tablet 5 mg PO Q4H PRN (Reason: pain) Qty: 40 0RF Discharge Orders: Discharge ED (Routine); Ordered 09/27/25 Ordered By: Solomon Landaverde Referrals: Paradise Che, CAPSULE MAKER [Primary Care Provider, Nurse Practitioner] Patient Instructions: Abdominal Pain (ED), Opioid Safety, Pain Management, Patient Portal & Debra Instructions Activity Restrictions/Additional Instructions: You were seen for your abdominal pain and vomiting, your evaluated with labs, urine test and CT scan that were overall reassuring. You had a mildly low level of one of your electrolytes, potassium, this was repleted. You were also found to have a urinary tract infection, you were started on an antibiotic for this, for the remainder of the course, take the Keflex 500 mg twice a day for total of 5 days, take this with food if possible. For continued nausea, use the Reglan every 8 hours as needed. Continue to follow-up with your surgeon tomorrow for reevaluation after your recent surgery. Return to the ED with severe worsening of your pain, fevers that do not improve with Tylenol, continuous vomiting, and any other emergent concerns. Print Language: Romanian Coding Level of Care Code ED Undraped Artist Model for Vilma Herrera
[2025-09-26 23:57] LABS: Hematocrit 42.7 % (36-47); Hemoglobin 14.70 g/dL (11.27-16.99); Mean Corpuscular HGB Conc 34.4 g/dL (30-55); Mean Corpuscular Hemoglobin 30.6 pg (27-33); Mean Corpuscular Volume 89.0 fl (85-98); Nucleated Red Blood Cells % 0 %; Platelet Count 306 10^3/cmm (157-399); Red Blood Count 4.80 10^6/uL (3.85-5.65); White Blood Count 8.39 10^3/uL (3.29-11.43)
[2025-09-27 00:13] LABS: Alanine Aminotransferase 45 U/L (0-33); Albumin Level 4.1 g/dL (3.5-5.2); Alkaline Phosphatase 86 U/L (35-105); Chloride 105 mmol/L (98-107); Potassium 3.3 mmol/L (3.5-5.1); Sodium 144 mmol/L (136-145)
[2025-09-27 00:14] LABS: Lactic Sepsis W/Reflex 0.8 mmol/L (0.5-2.2)
[2025-09-27 00:20] LABS: Procalcitonin 0.02 ng/mL (0-0.5)
[2025-09-27 00:36] LABS: Anion Gap 19.3 (5-19); Aspartate Amino Transferase 33 U/L (0-32); Blood Urea Nitrogen 8 mg/dL (6-20); Calcium 9.3 mg/dL (8.5-10.5); Carbon Dioxide 23 mmol/L (22-29); Globulin 3.1 g/dL (1.3-4.6); Glucose 92 mg/dL (65-115); Lipase 12 U/L (13-60); Magnesium 2.1 mg/dL (1.7-2.3); Osmolality Calculated 296 mOsm/kg (285-295); Total Protein 7.2 g/dL (6.6-8.7)
[2025-09-27] MEDS: iohexol 350 mg/mL 500 mL Btl (per mL) IV (00:57)
[2025-09-27] MEDS: iohexol 350 mg/mL 500 mL Btl (per mL) PO (00:58)
[2025-09-27 01:08] LABS: Glucose Urine UA Negative (Normal); Nitrate Urine Positive (Negative)
[2025-09-27 01:13] LABS: Add Urine Microscopic? YES
[2025-09-27 01:16] LABS: Specific Gravity, Urine 1.032 (1.005-1.030)
[2025-09-27 01:22] LABS: HCG Qualitative Urine. Negative (Negative)
== END 2025-09-27 01:58 | disposition home or self-care (01) ==
PROVIDERS: Emergency Provider Student in an Organized Health Care Education/Training Program; PCP Nurse Practitioner Family
DX: N39.0 Urinary tract infection, site not specified (principal); Z98.890 Other specified postprocedural states; R11.2 Nausea with vomiting, unspecified
CPT/HCPCS: 36415; 74177; 80053; 81001; 81025; 83605; 83690; 83735; 84100; 84145; 85025; 85651; 86140; 87077; 87086; 87186; 96374; 96375; 99285; J2270; J2765; J7030; J9999